=== PATIENT | female | born 1975 | race Caucasian/White ===

== ENCOUNTER 2016-12-02 20:17 | Emergency (ER) | payer OTHER ==
[~2016-12-02] VITALS: Ht 167.6 cm; Wt 118.0 kg
[~2016-12-02 20:17] MED LIST: ALBU8.5H2 INHALATION; AMLO5TAB2 PO; DULO30CA PO; FERR-74 PO; FLUC100T4 PO; HYDR-4003 PO; HYDROCODONE APAP PO; INSU100V7 SUBQ; LIP40 PO; LOPE1TAB13 PO; METF1000 PO; METO25TA6 PO; NOV100I SUBQ; ONDA8TAB10 PO; PANT40TA2 PO; TRAZ-118 PO
[2016-12-02 20:57] VITALS: BP 177/80; PULSE 92; RESP 18; O2SAT 96
--- NOTE | 2016-12-02 22:42 | ED.REPORT ---
HPI-Extremity Problem Upper Date of Service Dec 02, 2016 ED Provider: Jj Summers MD A right-handed 41 year old female with a history of diabetes, hypertension, abscess, MRSA, and neuropathy presents to the ED complaining of a dog bite. The pt was two fighting dogs yesterday when her hands were bitten. The right hand was only grazed but the left index finger sustained a puncture wound. Her left hand is now swollen and painful. The pt's tetanus vaccination is out of date. Nursing Notes Stated Complaint: L HAND SWOLLEN/DIABETIC Chief Complaint: Post Exposure Body Fluids Nursing Notes Reviewed: Yes Allergies: Coded Allergies: codeine (Verified Allergy, Severe, LOC, 10/20/15) hydromorphone (Verified Allergy, Severe, code blue, 10/20/15) 11/01/14-PATIENT SAYS SHE TAKES VICODIN AT HOME PER LESLI RN-CYM Scheduled Amlodipine (Amlodipine) 5 Mg Tablet 10 MG PO DAILY Atorvastatin (Lipitor) 40 Mg Tablet 40 MG PO DAILY Duloxetine (Cymbalta) 30 Mg Capsule.dr 30 MG PO DAILY Ferrous Sulfate (Feosol) 325 Mg Tablet 325 MG PO TIDWM Fluconazole (Fluconazole) 100 Mg Tablet 100 MG PO every tuesday Insulin Aspart (NovoLOG U100 Insulin Vial) 100 Unit/Ml Mdv 6-12 UNITS SUBQ TIDWM Insulin Glargine (Lantus U100 Insulin Vial) 100 Unit/Ml Unit 48 UNIT SUBQ HS Metformin (Glucophage) 1,000 Mg Tablet 1,000 MG PO BID Metoprolol Tartrate (Metoprolol Tartrate) 25 Mg Tablet 25 MG PO BID Ondansetron ODT (Ondansetron ODT) 8 Mg Tab.rapdis 8 MG PO QID Pantoprazole DR (Protonix) 40 Mg Tablet 40 MG PO BID Trazodone (Trazodone) 100 Mg Tablet 100 MG PO HS Scheduled PRN ([HYDROcodone-APAP 7.5-325]) 1 TABLET TABLET 1-2 TABLET PO Q4 PRN PRN For Pain Albuterol HFA (Proair HFA) 8.5 Gm Hfa.aer.ad 2 PUFFS INHALATION Q4H PRN PRN For Shortness of Breath Hydrocodone-Acetaminophen 5-325 mg (Hydrocodone-Acetaminophen 5-325 mg) 1 Each Tablet 1-2 TABLET PO Q4H PRN PRN For Pain Loperamide/Simethicone (Imodium Multi-Symptom Rel Cplt) 1 Each Tablet 2 EACH PO DAILY PRN PRN For Diarrhea or Loose Stool General Time Seen by MD: 22:41 Chief Complaint Hand Injury left Hx Obtained From: Patient Arrived By: Walk-in Onset Occurred: 1 day ago Symptom Duration: Since onset Recent Healthcare: No recent hospitalization, Recent doctor visit Similar Sx Previous: No Past Medical History Past Medical History MRSA Tarsal Tunnel Neuropathy Hx of pancreatitis abscess Hx of drug use, denies IV . clean since 1995 She denies any history of heart disease. Reports: Asthma, Diabetes mellitus, GERD, Hyperlipidemia, Hypertension Past Surgical History polyp removal Reports: Cholecystectomy Family History Reviewed, not relevant Smoking History Current Every Day Smoker, Former Smoker Social History Alcohol Use: "Social" Drug Use: Denies drug use (clean since 1995) Other Social History: Occupation lives with , no work or school at present Ambulatory Status Independent Review of Systems Constitutional: Denies: Fever Musculoskeletal: Reports: Extremity pain, Denies: Back pain, Neck pain Skin: Denies Rash Complete sys rev & neg: except as marked. Respiratory: Denies: Non-productive cough, Shortness of breath Cardiovascular: Denies: Chest pain GI: Denies: Abdominal pain Physical Exam Initial Vital Signs Vital Signs (First) Date Time Temp Pulse Resp B/P Pulse Ox O2 Delivery O2 Flow Rate FiO2 12/02/16 20:57 36.8 92 18 177/80 96 Room Air Initial VS: Reviewed General/Constitutional: Awake, Alert Neck: Atraumatic, Supple, Full range of motion Respiratory / Chest: Atraumatic, Breath sounds NL, Breath sounds = bilat, No respiratory distress Cardiovascular: Heart rate NL, Regular rhythm, Heart sounds NL Upper Extremity / MS: Atraumatic, Full range of motion Wrist / Hand: Full range of motion puncture wound to the radial aspect of the left index finger proximal to the IP crease tender in this area no proximal lymphangitic streaking no discharge Skin: Color NL, No rash, Warm, Dry Neurologic: Oriented X3, Speech NL, No motor deficits, No sensory deficits Head / Eyes: Atraumatic, Normocephalic, PERRL, EOMI ENT: Atraumatic, Airway patent, Mucous membranes moist Abdomen: Atraumatic Back: Atraumatic, Full range of motion Lower Extremity / Pelvis / MS: Atraumatic, Full range of motion Psychiatric: Affect NL, Mood NL Interpretation & Diagnostics Lab Results Interpretation Result Diagram: 12/02/16 2308 12/02/16 2308 Test 12/02/16 23:08 White Blood Count 11.4th/mm3 (3.8-10.1) Red Blood Count 4.11mil/mm3 (3.90-5.20) Hemoglobin 11.4g/dL (12.0-15.6) Hematocrit 33.4% (35.0-46.0) Mean Corpuscular Volume 81.3fL (81-100) Mean Corpuscular Hemoglobin 27.7pg (27.0-35.0) Mean Corpuscular Hemoglobin Concent 34.1% (32.0-37.0) Red Cell Distribution Width 12.9% (12.3-15.4) Platelet Count 259bil/L (150-400) Neutrophils (%) (Auto) 68.7% (40-74) Lymphocytes (%) (Auto) 23.8% (14-46) Monocytes (%) (Auto) 5.2% (4-12) Eosinophils (%) (Auto) 1.7% (0-5) Basophils (%) (Auto) 0.2% (0-3) Sodium Level 132mEq/L (134-144) Potassium Level 4.5mEq/L (3.5-5.2) Chloride Level 96mEq/L (97-108) Carbon Dioxide Level 24mmol/L (18-29) Blood Urea Nitrogen 32mg/dL (6-24) Creatinine 1.26mg/dL (0.57-1.00) Estimat Glomerular Filtration Rate 67mL/min (>59) Glucose Level 322mg/dL (60-99) Calcium Level 8.6mg/dL (8.5-10.1) Total Bilirubin 0.2mg/dL (0.0-1.2) Aspartate Amino Transf (AST/SGOT) 12U/L (0-50) Alanine Aminotransferase (ALT/SGPT) 17U/L (0-32) Alkaline Phosphatase 87U/L (25-150) Total Protein 6.2g/dL (6.4-8.4) Albumin 3.2g/dL (3.4-5.0) Hold Ramos Top Tube Received (Received) X-Ray Interpretation Xray Interpretation: soft tissue swelling without bony abnormality X-Ray Ordered: Hand left Interpretation / Wet Read by: Wet read ED physician Re-Eval/Medical Decision Source of Hx: Old records Counseled Regarding: Diagnosis, Lab results, Need for follow-up, When/why to return to ED Discharge & Departure Impression: Primary Impression: Dog bite of left hand Encounter type: initial encounter Qualified Code: S61.452A - Open bite of left hand, initial encounter Disposition: Home Discharge Condition All VS Reviewed: Yes Condition: Stable Additional Instructions: Emergency department evaluation today including the pelvic examination, labs and x-ray of hand. We gave intravenous antibiotics. We are going to try to manage this without hospitalizing you, but it is important that you watch this closely. Take augmentin as prescribed. Check your sugars and use your insulin. Elevate hand above the level of the heart. Call your primary care provider this am, tell them you were in the ED. I am hoping you can be re- checked in the office tomorrow. If not, return to the ED on tuesday, sooner if swelling/redness or pain are increasing. Referrals: Marsha Bright MD (PCP) [facility] Scribsara Attestation Portions of this note were transcribed by John De La O I, Dr. Summers personally performed the history, physical exam and medical decision-making; I reviewed and confirmed the accuracy of the information in the transcribed note. Signed by: Lana Polo, 12/02/16 and 23:55. copies to: [facility] Jj Summers MD Dec 02, 2016 22:41 JOHN DE LA O Dec 02, 2016 22:53
[2016-12-02] MEDS ORDERED: Ampicillin-Sulbactam Inj 3,000 MG in 0.9% Sodium Chloride 100 ML IV ONE (22:50)
[2016-12-02] MEDS ORDERED: TdaP Vaccine 0.5 mL Inj IM ONE (22:50)
[2016-12-02 23:51] LABS: BASOPHILS % (AUTO) 0.2 % (0-3); EOSINOPHILS % (AUTO) 1.7 % (0-5); MONOCYTES % (AUTO) 5.2 % (4-12); Mean Corpuscular Hemoglobin 27.7 pg (27.0-35.0); Mean Corpuscular Volume 81.3 fL (81-100); NEUTROPHILS % (AUTO) 68.7 % (40-74); Platelet Count 259 bil/L (150-400)
[2016-12-03 00:27] VITALS: BP 173/90; PULSE 92; RESP 20; O2SAT 98
[2016-12-03] MEDS ORDERED: _Amoxicillin-Clavulanate 875-125 mg Tablet PO SCH (08:30)
--- NOTE | 2016-12-03 09:08 | DRSVH ---
PROCEDURE: X-RAY LEFT HAND, MINIMUM THREE VIEWS ([id number]) INDICATIONS: dog bite, swollen hand TECHNIQUE: 3 views of the hand(s) acquired. COMPARISON: None. FINDINGS: Bones: No fractures or dislocations. Carpal bones are normally aligned. No suspicious bony lesions . Soft tissues: No suspicious soft tissue calcifications. Dorsal soft tissue swelling. IMPRESSION: No acute bony abnormality or soft tissue foreign bodies. Dictated by: Chapin Griffin [facility] Interpreted: Helen Bass MD on 12/03/2016 at 9:07 Transcribed by: SHAWNA on 12/03/2016 at 9:08 Approved by: Helen Bass MD, PhD on 12/03/2016 at 16:43
== END 2016-12-03 00:28 | disposition home or self-care (01) ==
LOC: SED 20:17
DX: S61.452A Open bite of left hand, initial encounter (principal); W54.0XXA Bitten by dog, initial encounter; Y93.89 Activity, other specified; Y92.9 Unspecified place or not applicable; Y99.8 Other external cause status; E11.9 Type 2 diabetes mellitus without complications; I10 Essential (primary) hypertension; E78.5 Hyperlipidemia, unspecified; J45.909 Unspecified asthma, uncomplicated; F17.200 Nicotine dependence, unspecified, uncomplicated; Z88.5 Allergy status to narcotic agent; Z79.4 Long term (current) use of insulin; Z79.84 Long term (current) use of oral hypoglycemic drugs; Z86.14 Personal history of Methicillin resistant Staphylococcus aureus infection; Z23 Encounter for immunization
CPT/HCPCS: 36415; 73130; 80053; 85025; 90471; 90715; 96365; 99284; J0295

== ENCOUNTER 2017-05-27 06:59 | Day surgery (SDC) | payer OTHER ==
--- NOTE | 2017-05-23 13:13 | PCM.ANEPRE ---
Anesthesia Pre-Op Review Reason for Review: Office Request - Patient nocompliat diabetic. Frequent BS in the 400s. Anesthesia Recommendations: Proceed with Procedure Additional Comments Morbidly Obese patient with frequent blood sugars in the high 400s'. Check blood sugar immediately upon arrival and report result to Anesthesiologist. Pending an acceptable blood sugar proceed and a DOS evaluation proceed. Bart Delcid MD May 23, 2017 13:13
[~2017-05-27] VITALS: Ht 167.6 cm; Wt 121.1 kg
[2017-05-27] VITALS (12 sets, daily range): BP systolic 118–162; BP diastolic 60–87; PULSE 69–81; RESP 11–18; O2SAT 92–100
[~2017-05-27 06:59] MED LIST changes: +ALBU18HF INH; -AMLO5TAB2 PO; +CETI5TAB28 PO; -FERR-74 PO; -FLUC100T4 PO; -HYDR-4003 PO; -HYDROCODONE APAP PO; +HYG25 PO; +INSU100C8 SUBQ; +LABE100T4 PO; -LIP40 PO; +LISI30TA5 PO; +LOPE-147 PO; -LOPE1TAB13 PO; -METO25TA6 PO; -NOV100I SUBQ; -ONDA8TAB10 PO; -PANT40TA2 PO; +RANI75TA21 PO; +TORS20TA3 PO; +TRIA10.8 NS
[2017-05-27] MEDS ORDERED: Insulin Human REGular 300 Unit/3 mL Inj ONE (07:00)
[2017-05-27] MEDS ORDERED: MeTOProlol 1 mg/mL 5 mL Inj ONE (07:00)
[2017-05-27] MEDS ORDERED: Ondansetron 2 mg/mL 2 mL Inj ONE (07:00)
[2017-05-27] MEDS ORDERED: fentaNYL-PF 50 mCg/mL 2 mL Inj ONE (07:00)
[2017-05-27] MEDS ORDERED: Propofol 10,000 mCg/mL 20 mL Inj ONE (07:00)
[2017-05-27] MEDS: Lactated Ringer's 1,000 ML IV SCH ×2 (07:02→09:23)
[2017-05-27] MEDS ORDERED: Levonorgestrel 20 mcg/24 hr IUD INTRAUTERI ONE ×2 (07:27→10:11)
[2017-05-27] MEDS ORDERED: Albuterol 2.5 mg/3 mL Inhalation Solution NEB PRN ×2 (07:35→09:45)
--- NOTE | 2017-05-27 09:07 | PCM.HPANE ---
Patient Data Date of Service: May 27, 2017 Surgeon Admitting Provider: Attending Provider:Crystal Owen MD Primary Care Physician:Aaron Cabrera DO Other Provider:Elizabeth Moore Anesthesia Reason for Visit Abnormal Uterine Bleeding Ht/WT & BMI Height (Feet): 5 Height (Inches): 6.00 Weight (Kilograms): 121.1 Body Mass Index 42.00 Allergies Coded Allergies: codeine (Verified Allergy, Severe, LOC, 10/20/15) hydromorphone (Verified Allergy, Severe, code blue, 10/20/15) 11/01/14-PATIENT SAYS SHE TAKES VICODIN AT HOME PER LESLI BROWN Past Anesthesia History Anesthesia History: Denies:: Abnormal Airway, Anesthesia Reactions, Difficult Intubation, Fam Anesthesia Reaction, Fam Malignant Hypertherm, Malignant Hyperthermia Diabetes History Hx Diabetes?: Yes (blood sugar at home at 4-247, 4 unit novolog) Type of Diabetes: Type II Glycemic Control: Insulin & Oral Medication Current Bedside Blood Glucose: 194 MRSA MRSA: Yes (2016- with foot surgery ) Medications Hypertension Medication: Yes Home Meds Incl Beta Oliver: Yes Date Beta Oliver Taken: May 26, 2017 Time Beta Oliver Taken: 07:00 Reported Medications Ranitidine (Zantac OTC)75 Mg Ljlyha06 Mg PO DAILY PRN For Dyspepsia or Heartburn #1 PKG Ref 0 05/20/17 Albuterol Sulfate (Ventolin HFA Inhaler)200 Puff/18 Gm Inhaler1 Puff INH Q4 PRN For Wheezing #1 INHALER Ref 0 05/20/17 Trazodone 100 Mg Rjxnkk298 Mg PO HS Ref 0 05/20/17 Torsemide 20 Mg Ktxxnz92 Mg PO BID PRN edema 30 Days Ref 0 05/20/17 Insulin Aspart (NovoLOG U100 Insulin Vial)100 U/Ml UUnknown Dose SUBQ DIRECTED PRN sliding scale/blood glucose #1 VIAL Ref 0 05/20/17 Triamcinolone Acetonide (Nasacort)10.8 Ml Spray10.8 Ml NS PRN For Congestion 05/20/17 Metformin (Glucophage)1,000 Mg Tablet1,000 Mg PO BID Ref 0 05/20/17 Lisinopril 30 Mg Qhrsqe64 Mg PO DAILY 30 Days Ref 0 05/20/17 Insulin Glargine (Lantus U100 Insulin Vial)100 Unit/Ml Vial35 Unit SUBQ BID #1 VIAL Ref 0 05/20/17 Labetalol 100 Mg Hlizgw266 Mg PO BID 05/20/17 Loperamide HCl (Imodium A-D)2 Mg Capsule2 Mg PO PRN For Diarrhea or Loose Stool 05/20/17 Duloxetine (Cymbalta)30 Mg Capsule.dr30 Mg PO DAILY Ref 0 05/20/17 Chlorthalidone 25 Mg Hjmere62 Mg PO DAILY #30 TABLET 05/20/17 Cetirizine 5 Mg Qtbzoc30 Mg PO HS Ref 0 05/20/17 Albuterol HFA (Proair HFA)8.5 Gm Hfa.aer.ad2 Puffs INHALATION Q4H PRN For Shortness of Breath #1 INHALER 05/20/17 Discontinued Reported Medications Trazodone 100 Mg Bchlhs723 Mg PO HS #30 10/20/15 Insulin Aspart (NovoLOG U100 Insulin Vial)100 Unit/Ml Mdv6-12 Units SUBQ TIDWM # 20 10/20/15 Albuterol HFA (Proair HFA)8.5 Gm Hfa.aer.ad2 Puffs INHALATION Q4H PRN For Shortness of Breath #1 INHALER 10/20/15 Atorvastatin (Lipitor)40 Mg Kactju08 Mg PO DAILY Ref 0 08/19/15 Metformin (Glucophage)1,000 Mg Tablet1,000 Mg PO BID Ref 0 08/19/15 Duloxetine (Cymbalta)30 Mg Capsule.dr30 Mg PO DAILY Ref 0 02/12/15 Loperamide/Simethicone (Imodium Multi-Symptom Rel Cplt)1 Each Tablet2 Each PO DAILY PRN For Diarrhea or Loose Stool 10/22/14 Fluconazole 100 Mg Ypxbqm711 Mg PO every tuesday Ref 0 09/29/[address] (Protonix)40 Mg Wtudfj02 Mg PO BID #60 TABLET Prov:Hector Bernard MD 03/29/16 Hydrocodone-Acetaminophen 5-325 mg 1 Each Tablet1-2 Tablet PO Q4H PRN For Pain # 16 TABLET Prov:Hector Bernard MD 03/29/16 Ondansetron ODT 8 Mg Tab.rapdis8 Mg PO QID #20 TABLET Prov:Hector Bernard MD 5/23/16 Metoprolol Tartrate 25 Mg Nkfaas91 Mg PO BID #60 TABLET Prov:Dom Mccallum MD 11/10/15 Ferrous Sulfate (Feosol)325 Mg Modxpp717 Mg PO TIDWM #90 TABLET Prov:Dom Mccallum MD 11/10/15 Amlodipine 5 Mg Vshene63 Mg PO DAILY #30 TABLET Prov:Dom Mccallum MD 11/10/15 Insulin Glargine (Lantus U100 Insulin Vial)100 Unit/Ml Unit48 Unit SUBQ HS #0 VIAL Prov:Dom Mccallum MD 11/10/15 [Hydrocodone/Acetaminophen] ([place] 7.5-325)1 TABLET TABLET No Conflict Check1-2 Tablet PO Q4 PRN For Pain #30 TABLET Prov:Dom Mccallum MD 11/10/15 History History of ENT Problems?: Yes HEENT History: Positive for:: Sinus Problem Denies:: Abnormal Airway Cataracts Difficult Intubation Dysphagia Glaucoma Hearing Problem Denture Type: Partial- Upper Teeth Condition: Missing Teeth Hx of Heart Problems?: Yes Cardiovascular History: Positive for:: Hypertension Denies:: AICD Abdominal Aortic Aneurism Atrial Fibrillation Cardiac Surgery Chest Pain Congestive Heart Failure Edema Heart Murmur Irregular Heartbeat Pacemaker Rheumatic Fever Thrombophlebitis Valvular Heart Disease Hx of Respiratory Problem?: Yes Respiratory History: Positive for:: Asthma Cough Use of Inhalers / NEBS Denies:: COPD Chest Surgery Dyspnea Emphysema Hemoptysis Oxygen Administration Pneumonia Pulmonary Embolism Tuberculosis Use of C-PAP Machine (sleep study recommended - not scheduled or done) Hx Neurologic Problems?: No Neurological History: Positive for:: Dizziness (Recent with new RX) Denies:: Alzheimer's Disease CVA Dementia Headaches Multiple Sclerosis Parkinson's Disease Seizures Hx of GI Problems?: Yes Hx of Problems?: No Genitourinary History: Denies:: HX of Hemodialysis Kidney Stones Urinary Tract Infection HX of Peritoneal Dialysis: No Female Hx: Denies:: Currently Endometriosis Pelvic Inflammatory Problems with Breasts? Skin History: Positive for:: History Skin Disorders? (prior hx I+D groin 2013) Denies:: Pressure Ulcers Hx Musculoskeletal Problems?: No Musculoskeletal History: Positive for:: Back Injury Denies:: Degenerative Joint Joint Replacement Musculoskeletal Trauma (foot surgeries- 2014 Dr Man ) Osteoarthritis Systemic Lupus Hx of Psycho/Social Problems?: No Psycho Social History: Positive for:: Anxiety Denies:: Bipolar Disorder Hx Depression Suicide Attempt Hx Surgeries?: Yes (GALLBLADDER, ABCESS with D&C) Hx Any Other Health Problems?: Yes Other History: Positive for:: Hospitalization (, 12/2013, 03/2010, 2000) Denies:: Cancer Endocrine Disease Thyroid Disease History Blood Transfusions: Positive for:: Accept Blood Products? 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 ) Smoking Status: Current Every Day Smoker Former Smoker Have You Smoked inLast 12 mo: Yes (one half pack day ) Stop/Bang S-Snoring: Do You Snore Loudly: Yes T-Tired: feel tired, fatigued: Yes O-Obsered: Observed not breath: No P-Blood Pressure: treated: Yes B- Body Mass Index > 35 kg/m2: Yes A- Age over 50: No N- Neck Large Circumference: Yes G- Gender Male: No SHAR Total Score: 5 SHAR Risk Assessment: High Risk, =/>3 Yes SHAR Category 4 OutPt Procedure: Yes Risk Assessment Category Category 1A: Patient has history of documented sleep apnea, and HAS NOT received any narcotic, sedative or anesthesia administration during this stay. Category 1B: Patient has history of documented sleep apnea, and HAS received any narcotic , sedative or anesthesia administration during this stay Category 2: Patient has SUSPECTED Obstructive Sleep Apnea, and HAS received any narcotic , sedative or anesthesia administration during this stay. Category 3: Patient has SUSPECTED Obstructive Sleep Apnea and HAS NOT received narcotic, sedative or anesthesia administration during this stay. Category 4: Outpatient in Procedural Areas with known sleep apnea or who screen positive for High Risk via the STOP/BANG questionnaire. Exam Exam Vital Signs Vital Signs Date Time Temp Pulse Resp B/P Pulse Ox O2 Delivery O2 Flow Rate FiO2 05/27/17 07:29 36.5 81 18 160/82 97 Room Air General Appearance: Alert, Oriented X3, Cooperative, No Acute Distress HEENT/AIRWAY: MP 2 Lungs: Clear to Auscultation, Diminished, Coarse Heart: Exam Unremarkable, Regular Rate/Rhythm, No Murmurs/Rubs/Gallops Meds/Labs/Diagnostics Admission Meds Current Medications Lactated Ringer's (Lr) 1,000 ml @ 120 mls/hr Q8H20M IV Last administered on t 07:02; Start 05/27/17 at 05:00; Stop 05/27/17 at 13:19 Bedside Blood Glucose: 194 Plan Impression Patient chart reviewed, patient interviewed and anesthestic plan with risks, benefits, and alternatives discussed, and informed consent obtained. NPO per Anesth. Guidelines: Yes ASA Physical Status: ASA3 Severe Disease Anesthetic Plan: GA Bene/Risks/Altern/Consents: Yes HP Complete Prior to Induction: Yes Caesar Fuller MD May 27, 2017 09:07
[2017-05-27] MEDS ORDERED: Lactated Ringer's 1,000 ML IV SCH (09:44)
[2017-05-27] MEDS ORDERED: Lactated Ringer's 500 ML IV PRN (09:44)
[2017-05-27] MEDS ORDERED: Labetalol 5 mg/mL 4 mL Inj IV PRN (09:45)
[2017-05-27] MEDS ORDERED: Ondansetron 2 mg/mL 2 mL Inj IVPUSH PRN ×2 (09:45→10:30)
[2017-05-27] MEDS ORDERED: hydrALAZINE 20 mg/mL Inj IVPUSH PRN (09:45)
[2017-05-27] MEDS ORDERED: EPHEDrine Sulfate 50 mg/mL Inj IVPUSH PRN (09:45)
[2017-05-27] MEDS ORDERED: Dexamethasone 4 mg/mL Inj IVPUSH PRN (09:45)
[2017-05-27] MEDS ORDERED: fentaNYL-PF 50 mCg/mL 2 mL Inj IVPUSH PRN (09:45)
[2017-05-27] MEDS ORDERED: Phenylephrine 10,000 mCg/mL Inj IVPUSH PRN (09:45)
[2017-05-27] MEDS ORDERED: Atropine 0.4 mg/mL Inj IVPUSH PRN (09:45)
[2017-05-27] MEDS ORDERED: MetoCLOpramide 5 mg/mL 2 mL Inj IVPUSH PRN ×2 (09:45→10:30)
[2017-05-27] MEDS ORDERED: Insulin Human REGular-Omnicell 100 Unit/mL ONE (10:22)
[2017-05-27] MEDS ORDERED: Ketorolac 15 mg/mL Inj IVPUSH PRN (10:30)
--- NOTE | 2017-05-27 10:36 | PCM.DIGYN ---
Surgical Discharge Instruction Dates of Hospitalization Date of Hospital Admission Providers Admitting Physician: Primary Care Physician: Aaron Cabrera DO Attending Physician: Crystal Owen MD Diet Discharge Diet: Heart Healthy, Diabetic Activity Discharge Activity-General: Balance rest and activity, Activity as pain allows , Activity as energy allows, No driving while taking narcotic Dressing and Incisional Care Hygiene: May shower, NO bathtub, hot tub or whirlpool Additional Instructions Discharge Instructions Nothing in the vagina for 2 weeks. Expect spotting for the next 1-2 weeks. You will be notified of the results from the tissue samples taken during the procedure today. Follow up in 2 weeks. Follow Up Plan Follow-up Provider (F9): Crystal Owen MD Follow-up appointment: Weeks (2) Call your provider for: Fever, Chills, Shortness of breath, Vomitting, Drainage at incision, Heavy vaginal bleeding, Wound redness, Increasing pain Katy Reddy DO May 27, 2017 10:36
--- NOTE | 2017-05-27 10:36 | PCM.SURGOP ---
Surgical Operative Report Date of Service: May 27, 2017 Pre Operative Diagnosis 1. Abnormal uterine bleeding 2. Left and right labial cysts 3. Uncontrolled diabetes Post Operative Diagnosis 1. Abnormal uterine bleeding 2. Left and right labial cysts 3. Uncontrolled diabetes Procedure: 1. Hysteroscopy D&C 2. Mirena IUD insertion 3. Incision and drainage of left and right labial cyst Surgeon and Customs And Border Protection Officer: Surgeon: Crystal Owen MD Assistants: None Indication for Procedure Jessica is a 41-year-old G0 with a history of abnormal uterine bleeding and complaints of painful labial cyst. She currently has one that is on her right labia near her clitoris and another one she reports arose this morning of the left labia that she would like removed or drains. She had a pelvic ultrasound done in December 2016 that showed a normal-sized uterus measuring 7.8 x 3.8 cm with a 6.2 mm endometrial echo. The ovaries were normal in appearance. Findings: Exam under anesthesia showing a erythematous vulva and perineum which is baseline for the patient. There was a right labial cyst that was about 1-2 cm that contained yellow pus like material. Similarly there was a left labial cyst that contained yellow puslike material was drained. Hysteroscopic findings showing a normal-appearing endometrial cavity. There was no endometrial polyps or fibroids appreciated (see intraoperative pictures). Procedure Details The patient was taken to the operating room where her general anesthesia was obtained without difficulty. She was placed in a lithotomy position in the [facility] and prepared and draped in the normal sterile fashion. A surgical timeout was performed. A hysteroscopy with dilation and curettage using the Myosure device was then performed. A bivalve speculum was inserted into the patient's vagina and the cervix was identified and grasped with single- tooth tenaculum. The cervix was then dilated using Hegar cervical dilators. The Myosure hysteroscope was then inserted and the above noted findings were appreciated. The Classic Myosure device was then inserted and the endometrial cavity was curetted. The Myosure scope and device were removed. A Mirena IUD was then inserted in the standard fashion. The uterus sounded to 9 cm. The left and right labial cyst were then incised with scalpel and drained. A portion of the left labial cyst capsule was sent to pathology. The beds of the cyst were cauterized with the Bovie cautery and to assure hemostasis. No sutures were used to close these incisions. They were both hemostatic. All lap instrument and needle counts were correct 2 at the end of procedure patient was taken to the recovery room awake and good condition. Complications There were no periprocedural complications identified. Surgical Specimen Removed: Yes Specimen sent to Pathology: Yes Surgical Specimen description: 1. small portion of left labial cyst wall Anesthetic Plan: GA Grafts, Implants: None Output, Estimated Blood Loss: 0 Blood Administration during calhoun: No Catheters: None Post Operative Plan Discharge home when awake and stable Crystal Owen MD May 27, 2017 10:36
--- NOTE | 2017-05-27 10:41 | PCM.ANEP1 ---
Post Anesthesia PACU Phase 1 Assessment Date of Service: May 27, 2017 Vital Signs 36.6 158/87 76 13 100% FM Anesthetic Administered: GA Level of Alertness: Sleeping, hard to arouse NORMAN's with Equal Strength: Yes Pain: No Nausea or Vomiting: No CV Function & Hydration Stable: Yes Airway Device: Oxygen Delivery: Simple Mask Lungs: Clear to Auscultation, Diminished, Coarse Summary Glu 123 PACU Phase 2 Assessment Complications: No Follow up Care: No Patient Instructions Provided: Yes Caesar Fuller MD May 27, 2017 10:41
--- NOTE | 2017-05-31 10:33 | PATH ---
SURGICAL PATHOLOGY Attending Physician:Crystal Owen, CASE STATUS: Signed Out PATIENT NAME: ELMER NUÑEZ PID: [id number] : 1975 DATE COLLECTED:05/27/2017 21:27 SPECIMEN: 1: Labium, Biopsy 2: Endometrium, Curettage CLINICAL HISTORY: ABNORMAL UTERINE BLEEDING, LABIAL CYST 1). LEFT LABIAL CYST CAPSULE 2). MYOSURE ENDOMETRIAL CURETTINGS FINAL DIAGNOSIS: 1. Left Labial Cyst Capsule: Acute and chronic inflammation with neuovascularization and prominent fibrosis. Elastic stain negative for elastic fiber proliferation. Negative for malignancy and significant atypia. 2. MyoSure Endometrial Curettings: Secretory endometrium with disordered maturation and focal changes of glandular breakdown. Negative for atypia and malignancy. ICD10: N93.8 GROSS DESCRIPTION: Received are two formalin-filled containers, both labeled with the patient' s name: 1. Received in formalin, labeled with the patient' s name and "left labia cyst capsule", is one irregular-shaped fragment of monson tissue measuring 0.4 x 0.3 x 0.2 cm. The fragment is totally submitted in cassette 1A. 2. Received in formalin, labeled with the patient' s name and "MyoSure endometrial curetting", are multiple fragments of monson tissue measuring 2.0 x 2.0 x 0.5 cm in aggregate. All fragments are totally submitted in cassette 2A. ([id number]) ICD-9 CODES: CPT CODES: 1: 41453, 26177 2: 91871 Electronically Signed Out Jj Lopez MD [facility] [address], [place] [address] Technical component performed at [facility], [facility] [address], [place], [address]
== END 2017-05-27 23:59 | disposition home or self-care (01) ==
LOC: SAS 06:59
PROVIDERS: ATTEND Obstetrics & Gynecology
DX: N93.8 Other specified abnormal uterine and vaginal bleeding (principal); N90.7 Vulvar cyst; Z30.014 Encounter for initial prescription of intrauterine contraceptive device; E11.65 Type 2 diabetes mellitus with hyperglycemia; I10 Essential (primary) hypertension; J45.909 Unspecified asthma, uncomplicated; F17.210 Nicotine dependence, cigarettes, uncomplicated; E66.01 Morbid (severe) obesity due to excess calories; Z68.41 Body mass index [BMI] 40.0-44.9, adult; Z79.51 Long term (current) use of inhaled steroids; Z79.84 Long term (current) use of oral hypoglycemic drugs; Z79.4 Long term (current) use of insulin
CPT/HCPCS: 56405; 58300; 58558; J1815; J1885; J2175; J2250; J2405; J3010; J7120; J7297; J7298; J7613

== ENCOUNTER 2017-06-08 18:52 | Emergency (ER) | payer OTHER ==
[~2017-06-08] VITALS: Ht 167.6 cm; Wt 107.7 kg
[2017-06-08 19:06] VITALS: BP 108/62; PULSE 75; RESP 20; O2SAT 94
--- NOTE | 2017-06-08 19:39 | ED.REPORT ---
HPI-Abd Pain F 40 and Over Date of Service Jun 08, 2017 ED Provider: Júnior Pedersen DO Pt is a 42 year old female with a history of DM, HTN, hyperlipidemia, MRSA, and abscesses who presents to the ED via EMS complaining of swelling, redness, and pain in her left groin region. She complains of associated upper abdominal cramping, left hand cramping, and occasionally leg cramping. Pt describes cramping as "like a Drake horse's" and rates it as 10. Her last menstruation was 05/07/17. Per pt, she had a IUD placed 5 days ago. She also reports a high blood sugar at 447 today. She notes she has a history of these abscesses which have required drainage in the past. Last night she noticed some drainage, dark brown in color coming from the groin area. Nursing Notes Stated Complaint: ABDOMINAL PAIN Chief Complaint: Female Abdominal Pain Nursing Notes Reviewed: Yes Allergies: Coded Allergies: codeine (Verified Allergy, Severe, LOC, 10/20/15) hydromorphone (Verified Allergy, Severe, code blue, 10/20/15) 11/01/14-PATIENT SAYS SHE TAKES VICODIN AT HOME PER LESLI RN-CYM Scheduled Cetirizine (Cetirizine) 5 Mg Tablet 10 MG PO HS Chlorthalidone (Chlorthalidone) 25 Mg Tablet 25 MG PO DAILY Duloxetine (Cymbalta) 30 Mg Capsule.dr 30 MG PO DAILY Insulin Glargine (Lantus U100 Insulin Vial) 100 Unit/Ml Vial 35 UNIT SUBQ BID Labetalol (Labetalol) 100 Mg Tablet 100 MG PO BID Lisinopril (Lisinopril) 30 Mg Tablet 30 MG PO DAILY Metformin (Glucophage) 1,000 Mg Tablet 1,000 MG PO BID Trazodone (Trazodone) 100 Mg Tablet 150 MG PO HS Scheduled PRN Albuterol HFA (Proair HFA) 8.5 Gm Hfa.aer.ad 2 PUFFS INHALATION Q4H PRN PRN For Shortness of Breath Albuterol Sulfate (Ventolin HFA Inhaler) 200 Puff/18 Gm Inhaler 1 PUFF INH Q4 PRN PRN For Wheezing Insulin Aspart (NovoLOG U100 Insulin Vial) 100 U/Ml U Unknown Dose SUBQ DIRECTED PRN PRN sliding scale/blood glucose Loperamide HCl (Imodium A-D) 2 Mg Capsule 2 MG PO PRN For Diarrhea or Loose Stool Ranitidine (Zantac OTC) 75 Mg Tablet 75 MG PO DAILY PRN PRN For Dyspepsia or Heartburn Torsemide (Torsemide) 20 Mg Tablet 20 MG PO BID PRN PRN edema Triamcinolone Acetonide (Nasacort) 10.8 Ml [place] 10.8 ML NS PRN For Congestion General Time Seen by MD: 19:13 Chief Complaint Abdominal pain Hx Obtained From: Patient Arrived By: Walk-in Sudden in Onset?: No Onset Occurred: More than a week ago... 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 Reports: Asthma, Diabetes mellitus, GERD, Hyperlipidemia, Hypertension Past Surgical History polyp removal Reports: Cholecystectomy Family History Reviewed, not relevant Smoking History Current Every Day Smoker, Former Smoker Social History Alcohol Use: "Social" Drug Use: Denies drug use Other Social History: Occupation lives with , no work or school at present Ambulatory Status Independent Review of Systems Respiratory: Denies: Non-productive cough GI: Reports: Abdominal pain (cramping) Female: Denies: Dysuria Musculoskeletal: Reports: Back pain (cramping), Extremity pain (cramping) Complete sys rev & neg: except as marked. Skin: Reports Swelling (Vaginal swelling) Physical Exam Vital Signs Vital Signs (First) Date Time Temp Pulse Resp B/P Pulse Ox O2 Delivery O2 Flow Rate FiO2 06/08/17 19:06 36.9 75 20 108/62 94 Room Air Initial VS: Reviewed Head / Eyes: Atraumatic, Normocephalic Neck: Supple, Full range of motion Extremities: Vascular intact, Neuro intact Skin: Warm, Dry, No cyanosis Neurologic: Alert, Oriented, Nonfocal Psychiatric: Mood/affect normal, Behavior normal General/Constitutional: Awake, Alert Respiratory / Chest: Atraumatic, Breath sounds NL, Breath sounds = bilat Cardiovascular: Heart rate NL, Regular rhythm, Heart sounds NL Abdomen: Atraumatic, Soft, Non-tender Back: Atraumatic, Full range of motion FEMALE : Erythematous and fluctuance area with 5x5 cm induration over left labia Interpretation & Diagnostics Lab Results Interpretation Result Diagram: 06/08/17195706/08/171957 Test 06/08/17 19:58 06/08/17 22:27 White Blood Count 12.5th/mm3 (3.8-10.1) Red Blood Count 4.19mil/mm3 (3.90-5.20) Hemoglobin 11.2g/dL (12.0-15.6) Hematocrit 33.2% (35.0-46.0) Mean Corpuscular Volume 79.2fL (81-100) Mean Corpuscular Hemoglobin 26.7pg (27.0-35.0) Mean Corpuscular Hemoglobin Concent 33.7% (32.0-37.0) Red Cell Distribution Width 13.5% (12.3-15.4) Platelet Count 244bil/L (150-400) Neutrophils (%) (Auto) 77.4% (40-74) Lymphocytes (%) (Auto) 15.3% (14-46) Monocytes (%) (Auto) 5.5% (4-12) Eosinophils (%) (Auto) 1.4% (0-5) Basophils (%) (Auto) 0.2% (0-3) Sodium Level 133mEq/L (134-144) Potassium Level 3.6mEq/L (3.5-5.2) Chloride Level 97mEq/L (97-108) Carbon Dioxide Level 22mmol/L (18-29) Blood Urea Nitrogen 32mg/dL (6-24) Creatinine 1.44mg/dL (0.57-1.00) Estimat Glomerular Filtration Rate 57mL/min (>59) Glucose Level 174mg/dL (60-99) Calcium Level 8.2mg/dL (8.5-10.1) Magnesium Level 1.5mg/dL (1.6-2.6) Total Bilirubin 0.2mg/dL (0.0-1.2) Aspartate Amino Transf (AST/SGOT) 9U/L (0-50) Alanine Aminotransferase (ALT/SGPT) 10U/L (0-32) Alkaline Phosphatase 80U/L (25-150) Total Protein 6.0g/dL (6.4-8.4) Albumin 2.8g/dL (3.4-5.0) Lipase 76U/L (13-60) Hold Ramos Top Tube Received (Received) Urine Color Yellow (YELLOW) Urine Appearance Slightly cloudy Urine pH 5.5 (5.0-8.0) Urine Specific [place] 1.020 (1.003-1.035) Urine Protein >300mg/dL (NEG,TRACE) Urine Glucose (UA) >1000mg/dL (NEGATIVE) Urine Ketones Negativemg/dL (NEGATIVE) Urine Occult Blood Large (NEGATIVE) Urine Nitrite Negative (NEGATIVE) Urine Bilirubin Negative (NEGATIVE) Urine Urobilinogen Normalmg/dL (NORMAL) Urine Leukocyte Esterase Negative (NEGATIVE) Urine RBC 3-10/hpf (0-2) Urine WBC 6-10/hpf (0-5) Urine Epithelial Cells Moderate/hpf (NONE-MOD) Urine Crystals None seen (NONE SEEN) Urine Bacteria Moderate/hpf (NONE-FEW) Urine Hyaline Casts 5/20/lpf (NONE) Urine Granular Casts Occasional (NONE SEEN) Urine Waxy Casts None seen (NONE SEEN) Urine Red Blood Cell Casts None seen (NONE SEEN) Urine White Blood Cell Casts None seen (NONE SEEN) Urine Mucus None seen (None Seen) Urine Trichomonas None seen (NONE SEEN) Urine Yeast None (NONE SEEN) Urinalysis Comment Urine Culture Reflexed Indicated Hold Urine Received (Received) Procedures ABSCESS DRAINAGE: Time: 22:53 Procedure performed by: ED Physician Consent/Setup/Site Prep: Consent from patient, Time-out performed, Hand hygiene observed, Stand sterile technique, Standard surgical scrub, Sterile drapes applied Location of Abscess: Left labia Local Anesthesia: Lidocaine w epi 1% Incised Abscess with Scalpel: #11 Pus Drained: Small Irrigation: Copious Post-Procedure/Complications: Packing placed, Drain placed, Culture obtained, Gram stain ordered, Dressing applied, No complications, Condition improved, Tolerated procedure well, Patient stable Re-Eval/Medical Decision Med Decision/Clinical Course 42-year-old female with history of recurrent groin abscesses presents with a left labial abscess and associated chills and aches. She does not meet criteria for sepsis although her white blood cell count is mildly elevated. She is noted to have mild acute kidney injury, however after IV fluids, pain medication, and incision and drainage of the abscess she is feeling much better. She has a follow-up appointment scheduled with [facility] [employer]OPER in 2 days. She has no symptoms of UTI, however her urine has some white blood cells and it was sent for culture. She is treated with Bactrim which will cover both MRSA abscess as well as a UTI if present. Her sugars have come down from her previously reported number in the 400s. Source of Hx: Old records Re-Evaluation/Progress : Time of Eval: 22:52 Re-Evaluation/Progress Note: Pt rechecked. Drained pt's abscess with pt's consent. Informed pt of plan for discharge. Pt understands and agrees with plan for discharge. F/U instructions and RTER warnings given. All questions addressed. All questions addressed. Counseled Regarding: Diagnosis, Lab results, Need for follow-up, When/why to return to ED Discharge & Departure Primary Impression: Labial abscess Additional Impressions: Leukocytosis Leukocytosis type: unspecified Qualified Code: D72.829 - Elevated white blood cell count, unspecified MADELEINE (acute kidney injury) Hyperglycemia Cellulitis Site of cellulitis: other site Qualified Code: L03.818 - Cellulitis of other sites Disposition: Home Discharge Condition All VS Reviewed: Yes Condition: Stable Patient Instructions: Acute Wound Care (GEN), Cellulitis (ED) Additional Instructions: Thank you for entrusting us with your care. Please take the antibiotics as directed, twice daily for 10 days. Use norco as needed for pain (#14 given). Drink plenty of fluids. Follow up with your equipment detailer as scheduled on Tuesday. Return to the ER for new or worsening symptoms. Wound packing can be removed in 2-3 days. It was a pleasure to meet you and I hope you feel better soon. Referrals: Aaron Cabrera DO (PCP) Milvia[place]sara Attestation Portions of this note were transcribed by Krysta David. I, Dr. Pedersen personally performed the history, physical exam and medical decision-making; I reviewed and confirmed the accuracy of the information in the transcribed note. Signed by: Lana Alvarez, 06/08/17. copies to: Aaron Cabrera Gary R DO Jun 08, 2017 19:39 Krysta Donald Jun 08, 2017 20:04
[2017-06-08 20:04] LABS: BASOPHILS % (AUTO) 0.2 % (0-3); EOSINOPHILS % (AUTO) 1.4 % (0-5); MONOCYTES % (AUTO) 5.5 % (4-12); Mean Corpuscular Hemoglobin 26.7 pg (27.0-35.0); Mean Corpuscular Volume 79.2 fL (81-100); NEUTROPHILS % (AUTO) 77.4 % (40-74); Platelet Count 244 bil/L (150-400)
[2017-06-08 20:31] LABS: Magnesium 1.5 mg/dL (1.6-2.6)
[2017-06-08 21:37] VITALS: BP 133/65; PULSE 71; RESP 18; O2SAT 95
[2017-06-08] MEDS ORDERED: Trimethoprim-Sulfa 160 mg-800 mg Tablet PO ONE (23:15)
[2017-06-08 23:30] LABS: APPEARANCE,URINE SLIGHTLY CLOUDY (CLEAR,HAZY); COLOR,URINE YELLOW (YELLOW); OCCULT BLOOD,URINE LARGE (NEGATIVE); PH,URINE 5.5 (5.0-8.0); UROBILINOGEN,URINE NORMAL (NORMAL)
[2017-06-08 23:33] VITALS: BP 159/71; PULSE 76; RESP 18; O2SAT 95
== END 2017-06-08 23:35 | disposition home or self-care (01) ==
LOC: EDBD 18:52 → EDUNIT# 18:52 → SED 18:52
DX: N76.4 Abscess of vulva (principal); D72.829 Elevated white blood cell count, unspecified; N17.9 Acute kidney failure, unspecified; R73.9 Hyperglycemia, unspecified; L02.214 Cutaneous abscess of groin; E11.40 Type 2 diabetes mellitus with diabetic neuropathy, unspecified; E78.5 Hyperlipidemia, unspecified; J45.909 Unspecified asthma, uncomplicated; K21.9 Gastro-esophageal reflux disease without esophagitis; I10 Essential (primary) hypertension; F17.200 Nicotine dependence, unspecified, uncomplicated; Z86.14 Personal history of Methicillin resistant Staphylococcus aureus infection; Z88.5 Allergy status to narcotic agent; Z79.84 Long term (current) use of oral hypoglycemic drugs; Z79.4 Long term (current) use of insulin
CPT/HCPCS: 36415; 56405; 80053; 81000; 81025; 83690; 83735; 85025; 87040; 87070; 87075; 87086; 87088; 87147; 87186; 87205; 96374; 99285; J2270

== ENCOUNTER 2017-07-20 21:30 | Inpatient (IN) | payer OTHER ==
[~2017-07-20] VITALS: Ht 167.6 cm; Wt 121.0 kg
[2017-07-20 21:38] VITALS: BP 182/110; PULSE 88; RESP 16; O2SAT 96
[2017-07-20 22:04] LABS: BASOPHILS % (AUTO) 0.1 % (0-3); EOSINOPHILS % (AUTO) 1.8 % (0-5); MONOCYTES % (AUTO) 4.8 % (4-12); Mean Corpuscular Hemoglobin 27.9 pg (27.0-35.0); Mean Corpuscular Volume 83.5 fL (81-100); NEUTROPHILS % (AUTO) 72.7 % (40-74); Platelet Count 254 bil/L (150-400)
[2017-07-20 22:31] LABS: Magnesium 2.1 mg/dL (1.6-2.6)
--- NOTE | 2017-07-20 22:37 | ED.REPORT ---
HPI-Abd Pain F 40 and Over Date of Service Jul 20, 2017 ED Provider: Don Wang DO A 42 year old female with a history of hypertension, diabetes, hyperlipidemia, MRSA infection, pancreatitis and recurrent abscesses presents to the ED complaining of abdominal pain. The pain is located in the epigastric area and radiates to the back. It began two to three weeks ago as a 2/10 discomfort and has worsened significantly in the last three days. The pt has been unable to take her medications today because of the pain. The pt had a labial abscess removal on 06/08/2017. The abscess site tested positive for MRSA but blood cultures were negative. She believes that her symptoms may be related to pancreatitis or an abscess. Nursing Notes Stated Complaint: UPPER ABDOMINAL PAIN Chief Complaint: Female Abdominal Pain Nursing Notes Reviewed: Yes Allergies: Coded Allergies: codeine (Verified Allergy, Severe, LOC, 07/20/17) hydromorphone (Verified Allergy, Severe, code blue, 07/20/17) 11/01/14-PATIENT SAYS SHE TAKES VICODIN AT HOME PER LESLI RN-CYM Scheduled Cetirizine (Cetirizine) 5 Mg Tablet 10 MG PO HS Chlorthalidone (Chlorthalidone) 25 Mg Tablet 25 MG PO DAILY Duloxetine (Cymbalta) 30 Mg Capsule.dr 30 MG PO DAILY Insulin Glargine (Lantus U100 Insulin Vial) 100 Unit/Ml Vial 35 UNIT SUBQ BID Labetalol (Labetalol) 100 Mg Tablet 100 MG PO BID Lisinopril (Lisinopril) 30 Mg Tablet 30 MG PO DAILY Metformin (Glucophage) 1,000 Mg Tablet 1,000 MG PO BID Trazodone (Trazodone) 100 Mg Tablet 150 MG PO HS Scheduled PRN Albuterol HFA (Proair HFA) 8.5 Gm Hfa.aer.ad 2 PUFFS INHALATION Q4H PRN PRN For Shortness of Breath Albuterol Sulfate (Ventolin HFA Inhaler) 200 Puff/18 Gm Inhaler 1 PUFF INH Q4 PRN PRN For Wheezing Insulin Aspart (NovoLOG U100 Insulin Vial) 100 U/Ml U Unknown Dose SUBQ DIRECTED PRN PRN sliding scale/blood glucose Loperamide HCl (Imodium A-D) 2 Mg Capsule 2 MG PO PRN For Diarrhea or Loose Stool Ranitidine (Zantac OTC) 75 Mg Tablet 75 MG PO DAILY PRN PRN For Dyspepsia or Heartburn Torsemide (Torsemide) 20 Mg Tablet 20 MG PO BID PRN PRN edema Triamcinolone Acetonide (Nasacort) 10.8 Ml [place] 10.8 ML NS PRN For Congestion General Time Seen by MD: 22:33 Chief Complaint Abdominal pain Hx Obtained From: Patient Arrived By: Walk-in Sudden in Onset?: No Onset Occurred: More than a week ago... 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 Skin: Denies Rash Physical Exam Vital Signs Vital Signs (First) Date Time Temp Pulse Resp B/P Pulse Ox O2 Delivery O2 Flow Rate FiO2 07/20/17 21:38 36.8 88 16 182/110 96 Room Air Initial VS: Reviewed General/Constitutional: Awake, Alert Respiratory / Chest: Atraumatic, Breath sounds NL, Breath sounds = bilat, No respiratory distress Cardiovascular: Heart rate NL, Regular rhythm, Heart sounds NL Abdomen: Atraumatic, Soft exquisite RUQ and epigastric tenderness Back: Atraumatic, Full range of motion Head / Eyes: Atraumatic, Normocephalic, PERRL, EOMI ENT: Atraumatic, Airway patent, Mucous membranes moist Skin: Atraumatic, Color NL, No rash, Warm, Dry Neurologic: Oriented X3, Speech NL, No motor deficits, No sensory deficits Neck: Atraumatic, Supple, Full range of motion Upper Extremity / MS: Atraumatic, Full range of motion Lower Extremity / Pelvis / MS: Atraumatic, Full range of motion Psychiatric: Affect NL, Mood NL Interpretation & Diagnostics Interpretation & Diagnostics: US Abdomen: CONCLUSION: Enlarged fatty liver. Mild extrahepatic biliary ductal dilation, which is nonspecific following cholecystectomy. If there are clinical and laboratory signs of biliary obstruction, an MRCP can be performed to further evaluate. Hypoechoic lesion superior to the pancreatic head, possibly a lymph node. Lab Results Interpretation Result Diagram: 07/20/17 21507/20/17 215 Test 07/20/17 21:53 07/20/17 21:59 07/20/17 23:07 Hold Urine Received (Received) White Blood Count 11.7th/mm3 (3.8-10.1) Red Blood Count 4.23mil/mm3 (3.90-5.20) Hemoglobin 11.8g/dL (12.0-15.6) Hematocrit 35.3% (35.0-46.0) Mean Corpuscular Volume 83.5fL (81-100) Mean Corpuscular Hemoglobin 27.9pg (27.0-35.0) Mean Corpuscular Hemoglobin Concent 33.4% (32.0-37.0) Red Cell Distribution Width 13.7% (12.3-15.4) Platelet Count 254bil/L (150-400) Neutrophils (%) (Auto) 72.7% (40-74) Lymphocytes (%) (Auto) 20.3% (14-46) Monocytes (%) (Auto) 4.8% (4-12) Eosinophils (%) (Auto) 1.8% (0-5) Basophils (%) (Auto) 0.1% (0-3) Sodium Level 133mEq/L (134-144) Potassium Level 4.4mEq/L (3.5-5.2) Chloride Level 94mEq/L (97-108) Carbon Dioxide Level 25mmol/L (18-29) Blood Urea Nitrogen 44mg/dL (6-24) Creatinine 1.92mg/dL (0.57-1.00) Estimat Glomerular Filtration Rate 41mL/min (>59) Glucose Level 339mg/dL (60-99) Calcium Level 9.2mg/dL (8.5-10.1) Magnesium Level 2.1mg/dL (1.6-2.6) Total Bilirubin 0.2mg/dL (0.0-1.2) Aspartate Amino Transf (AST/SGOT) 13U/L (0-50) Alanine Aminotransferase (ALT/SGPT) 13U/L (0-32) Alkaline Phosphatase 87U/L (25-150) Troponin T 0.010ug/L (0.0-0.011) Total Protein 7.1g/dL (6.4-8.4) Albumin 3.2g/dL (3.4-5.0) Lipase 349U/L (13-60) Hold Ramos Top Tube Received (Received) Urine Color Yellow (YELLOW) Urine Appearance Clear (CLEAR,HAZY) Urine pH 7.0 (5.0-8.0) Urine Specific [place] 1.015 (1.003-1.035) Urine Protein >300mg/dL (NEG,TRACE) Urine Glucose (UA) >1000mg/dL (NEGATIVE) Urine Ketones Negativemg/dL (NEGATIVE) Urine Occult Blood Moderate (NEGATIVE) Urine Nitrite Negative (NEGATIVE) Urine Bilirubin Negative (NEGATIVE) Urine Urobilinogen Normalmg/dL (NORMAL) Urine Leukocyte Esterase Negative (NEGATIVE) Urine RBC 11-50/hpf (0-2) Urine WBC 6-10/hpf (0-5) Urine Epithelial Cells Few/hpf (NONE-MOD) Urine Crystals None seen (NONE SEEN) Urine Bacteria Moderate/hpf (NONE-FEW) Urine Hyaline Casts None/lpf (NONE) Urine Granular Casts None seen (NONE SEEN) Urine Waxy Casts None seen (NONE SEEN) Urine Red Blood Cell Casts None seen (NONE SEEN) Urine White Blood Cell Casts None seen (NONE SEEN) Urine Mucus Present (None Seen) Urine Trichomonas None seen (NONE SEEN) Urine Yeast None (NONE SEEN) Urinalysis Comment None Urine Culture Reflexed Indicated ECG Interpretation ECG Interpretation: normal sinus rhythm with a rate of 81 ST elevation, probable normal early repolarization pattern Time: 23:23 Interpreted by: ED physician Pulse Oximetry Interpretation Pulse Oximetry Interpretation: 96% on room air Pulse Oximetry: Pulse Ox normal Re-Eval/Medical Decision Med Decision/Clinical Course Acute pancreatitis with renal insufficiency and hyperglycemia. Ultrasound of her abdomen was otherwise reassuring. Possible lymph node at the head of the pancreas. We will admit for pain control and further evaluation. She does have a urinary tract infection and so therefore she is given 2 g of Rocephin. Culture of her urine is pending. Source of Hx: Old records Re-Evaluation/Progress : Time of Eval: 23:28 Patient Status: Condition improved Re-Evaluation/Progress Note: Pt rechecked, who is comfortable. Additional history is obtained. The diagnosis and plan for admission are discussed. The pt understands and agrees with the plan. All questions are addressed at this time. Consultation : Referral / Consult Name: Reinier Barboza MD Consulted With: Hospitalist Call Returned at: 00:00 Electrician Apprentice: Agrees with eval, Agrees with plan, Accepts admit Note: Spoke with Dr. Barboza, hospitalist, regarding pt's case. Dr. Barboza agrees with the evaluation and agrees to admit the pt. Counseled Regarding: Diagnosis, Lab results, Need for admission Discharge & Departure Primary Impression: Pancreatitis, acute Pancreatitis type: unspecified pancreatitis type Acute pancreatitis complication: unspecified Qualified Code: K85.90 - Acute pancreatitis without necrosis or infection, unspecified Additional Impressions: Renal insufficiency UTI (urinary tract infection) Urinary tract infection type: site unspecified Hematuria presence: without hematuria Qualified Code: N39.0 - Urinary tract infection, site not specified Disposition: ADMITTED TO HOSPITAL Discharge Condition All VS Reviewed: Yes Condition: Stable Referrals: Gudelia Bryant DO (PCP) Scribe Attestation Portions of this note were transcribed by John De La O. I, Dr. Wang personally performed the history, physical exam and medical decision-making; I reviewed and confirmed the accuracy of the information in the transcribed note. copies to: Gudelia Bryant Todd P DO Jul 20, 2017 22:37 JOHN DE LA O Jul 20, 2017 23:03
[2017-07-20 23:39] LABS: APPEARANCE,URINE CLEAR (CLEAR,HAZY); COLOR,URINE YELLOW (YELLOW); OCCULT BLOOD,URINE MODERATE (NEGATIVE); UROBILINOGEN,URINE NORMAL (NORMAL)
[2017-07-20] MEDS ORDERED: 0.9% Sodium Chloride 1,000 ML IV ONE (23:40)
[2017-07-20] MEDS ORDERED: cefTRIAXone Inj 2,000 MG in Dextrose 5% Minibag Plus 50 ML IV ONE (23:45)
[2017-07-21 00:17] VITALS: BP 174/86; PULSE 92; RESP 17; O2SAT 98
[2017-07-21] MEDS ORDERED: Ondansetron 2 mg/mL 2 mL Inj IVPUSH PRN (00:30)
[2017-07-21] MEDS ORDERED: Alum-Mag Hydrox-Simeth 30 mL Suspension PO PRN (00:30)
[2017-07-21] MEDS ORDERED: Polyethylene Glycol (PEG) 17 Gm Powder PO PRN (00:30)
--- NOTE | 2017-07-21 00:38 | PCM.HPMED ---
Subjective Date of Service Jul 21, 2017 Primary Provider: Admitting Physician: Primary Care Physician: Gudelia Bryant DO Attending Physician: Admit Status: From the Emergency Department Chief Complaint: Abdominal pain History of Present Illness: Patient is a 42-year-old female that presents to the emergency department with upper abdominal pain that radiates to the back. She has a history of pancreatitis 2, diabetes, hyperlipidemia, MRSA infection, and recurrent abscesses Patient states that her abdominal pain started 2 weeks ago and worsened this last July 17. She states that the pain is better in the morning and worse after eating. The pain is located in the epigastric region and radiates directly to the back. She says that this is similar to the pain she experienced previously with pancreatitis. The patient reports typically being compliant with her medications but states that she was unable to take them this morning secondary to nausea. Patient denies vomiting, diaphoresis, constipation , dysuria, hematochezia, chest pain. Patient admits to polyuria secondary to diuretic, chronic diarrhea with current stools being consistency of jelly. Review of Systems: Complete ROS was performed and pertinent positives and negatives included in the history of present illness. All other findings were negative. Allergies Coded Allergies: codeine (Verified Allergy, Severe, LOC, 07/20/17) hydromorphone (Verified Allergy, Severe, code blue, 07/20/17) 11/01/14-PATIENT SAYS SHE TAKES VICODIN AT HOME PER LESLI RN-CYM Home Medications Cetirizine (Cetirizine) 5 Mg Tablet 10 MG PO HS Chlorthalidone (Chlorthalidone) 25 Mg Tablet 25 MG PO DAILY Duloxetine (Cymbalta) 30 Mg Capsule.dr 30 MG PO DAILY Insulin Glargine (Lantus U100 Insulin Vial) 100 Unit/Ml Vial 35 UNIT SUBQ BID -80U every AM Labetalol (Labetalol) 100 Mg Tablet 100 MG PO BID Lisinopril (Lisinopril) 30 Mg Tablet 30 MG PO DAILY Metformin (Glucophage) 1,000 Mg Tablet 1,000 MG PO BID Trazodone (Trazodone) 100 Mg Tablet 150 MG PO HS Albuterol HFA (Proair HFA) 8.5 Gm Hfa.aer.ad 2 PUFFS INHALATION Q4H PRN PRN For Shortness of Breath Albuterol Sulfate (Ventolin HFA Inhaler) 200 Puff/18 Gm Inhaler 1 PUFF INH Q4 PRN PRN For Wheezing Insulin Aspart (NovoLOG U100 Insulin Vial) 100 U/Ml U Unknown Dose SUBQ DIRECTED PRN PRN sliding scale/blood glucose Loperamide HCl (Imodium A-D) 2 Mg Capsule 2 MG PO PRN For Diarrhea or Loose Stool Ranitidine (Zantac OTC) 75 Mg Tablet 75 MG PO DAILY PRN PRN For Dyspepsia or Heartburn Torsemide (Torsemide) 20 Mg Tablet 20 MG PO BID PRN PRN edema Triamcinolone Acetonide (Nasacort) 10.8 Ml [place] 10.8 ML NS PRN For Congestion PMH 1. MRSA 2. Tarsal tunnel 3. Neuropathy 4. History of pancreatitis 5. 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 Diabetes mellitus 7. GERD 8. Hyperlipidemia 9. Hypertension 10. Asthma Surgical History 1. Cholecystectomy 2. Left foot, third toe surgically removed and half of second toe surgically removed 3. I/D abscess leg, groin, underbreast Family History 1. Father had pancreatis 2. Father had diabetes 3. Father had renal failure on dialysis 4. Father had congestive heart failure Social History Hx Alcohol Use: No (rare alcohol use, last time one year ago, no hx of heavy alcohol use) Hx Substance Use: No (meth use - none for 21 years ) Hx Tobacco Use: Yes Smoking Status: Current Every Day Smoker (Several attempts at quitting) Living Arrangement: with Family Exam Vital Signs Vital Sign - Last Date Time Temp Pulse Resp B/P Pulse Ox O2 Delivery O2 Flow Rate FiO2 07/21/17 00:17 92 17 174/86 98 Room Air 07/20/17 21:38 36.8 Exam General: Nondistressed, well-developed morbidly obese female HEENT: NC/AT, PERRLA, EOM intact. Nontender sinuses, no nasal discharge. Fair dentation, no erythema, nor exudate present in oropharynx. No thyromegaly appreciated. CV: Regular rate and rhythm, no murmurs, gallops, or rubs appreciated RESP: Clear to auscultation bilaterally, no wheezes or rhonchi appreciated ABD: Bowel sounds normal, nondistended, tender to palpation over epigastric region. No rebound tenderness, Larson's point negative EXT: No joint swelling, no edema appreciated LYMPH: No cervical or axillary adenopathy appreciated NEURO: Symmetric face, cranial nerves grossly intact, strength intact bilaterally upper and lower extremities, decreased sensation to light touch left lower extremity below the knee, decreased sensation to light touch right lower extremity below the calf. PSYCH: Oriented 4. Linear and appropriate conversation. Skin: No rashes or ecchymosis appreciated Lab and Diagnostics Result Diagram: 07/20/17215807/20/172158 Assessment & Plan Patient is a 42-year-old female that presents with upper abdominal pain and a history of pancreatitis, diabetes, MRSA, neuropathy 1. Acute pancreatitis, presents upon admission and ongoing -Lipase at 349, epigastric pain radiating to the back, and history of pancreatitis suggests likely origin of pain -Cholecystectomy therefore, not gallbladder. -Abdominal ultrasound indicative of fatty liver, likely cause of pancreatitis -Normal saline -Strict I&O measurement -Pain management with morphine as patient is allergic to hydromorphone -Nothing by mouth 2. Acute kidney injury, present on admission and ongoing -Elevated BUN of 44, elevated creatinine at 1.92 -Fluids as above -Avoid nephrotoxic medications 3. Diabetes, insulin-dependent, present on admission and ongoing -Patient on Lantus, NovoLog, and metformin at home. We will hold metformin and continue the rest of medications 4. Hypertension, present on admission and ongoing - Continue home Labatolol for BP management 5. GERD, present on admission ongoing -Protonix Patient has been admitted into inpatient, she is expected to spend greater than two midnights in the hospital Pain Evaluation: Adequate Pain Control GI Prophylaxis: H2 ekaterina VTE Prophylaxis: Sub-Q Heparin (Unfractionated) Resuscitation Status: CPR: Attempt Resuscitation Attending Statement The patient was seen and examined together with Dr. Allen on 07/21 and I agree with the history, exam and plan as outlined in the note above. Mervat Allen DO Jul 21, 2017 00:38 Reinier Barboza MD Jul 21, 2017 05:25
[2017-07-21] MEDS: 0.9% Sodium Chloride 1,000 ML IV SCH ×3 (01:20→21:11)
[2017-07-21 01:30] VITALS: BP 179/95; PULSE 89; RESP 18; O2SAT 96
[2017-07-21 01:31] VITALS: BP 157/64; PULSE 95; RESP 19; O2SAT 96
[2017-07-21] MEDS ORDERED: INSU100I13 SUBQ (01:54)
[2017-07-21] MEDS ORDERED: TRAZ150T72 PO (01:54)
[2017-07-21] MEDS ORDERED: FLUC150T3 PO (01:55)
--- NOTE | 2017-07-21 01:57 | NUR ---
Admit Note Pt. arrived on floor at 0125. A&OX3. Pt. reports abdominal pain. Peripheral IV intact and patent. Will continue to monitor.
[2017-07-21] MEDS ORDERED: Albuterol HFA 60 Puff 8 Gm Inhaler INHALATION PRN (02:05)
[2017-07-21] MEDS ORDERED: Albuterol 2.5 mg/3 mL Inhalation Solution NEB PRN (02:13)
[2017-07-21] MEDS ORDERED: Glucose 40% Oral Gel 15 Gm Tube PO PRN (02:15)
[2017-07-21] MEDS ORDERED: Dextrose 10% 250 ML IV PRN (02:20)
[2017-07-21 05:55] VITALS: BP 159/78; PULSE 86; RESP 18; O2SAT 95
[2017-07-21] MEDS ORDERED: Insulin ASPART 70/30 100 Unit/mL Syringe SUBQ SCH (08:00)
[2017-07-21] MEDS: Insulin GLARgine 100 Unit/mL Syringe SUBQ SCH (09:25)
[2017-07-21] MEDS: Insulin LISPRO 300 Unit/3 mL Inj SUBQ SCH ×5 (09:26→21:17)
[2017-07-21] MEDS: Pantoprazole 40 mg ER24 Tablet PO SCH (09:58)
[2017-07-21] MEDS: DULoxetine 30 mg DR Capsule PO SCH (09:58)
[2017-07-21] MEDS: Heparin 5,000 Unit/mL Inj SUBQ SCH ×2 (09:58→21:15)
--- NOTE | 2017-07-21 11:13 | DRSVH ---
PROCEDURE: US ABDOMEN, LIMITED ([id number]) INDICATIONS: ruq pain TECHNIQUE: Real-time focused scanning was performed of the abdomen, with image documentation. COMPARISON: [facility] Ultrasound, US, US PELVIC+TRANSVAG, 12/14/2016, 17:00. FINDINGS: Liver is diffusely increased in echogenicity. No focal hepatic abnormalities identified. Normal hepatic size. Not requested. Post cholecystectomy. No biliary dilatation. Small lymph node s seen adjacent to the pancreatic head measuring roughly 1.0 cm in maximal short axis. Right kidney is grossly normal. No free fluid seen. IMPRESSION: 1. Increased hepatic echogenicity noted likely related to fatty infiltration of the liver but other s ources of hepatocellular disease cannot be excluded. Recommend clinical correlation. No biliary dil atation present with the common bile duct measuring roughly 6 mm. 2. Presumed prominent lymph node adjacent to the pancreatic head which can be further assessed by abd ominal CT scan which is scheduled for 07/21/2017. Dictated by: Chapin Griffin A Interpreted: Helen Bass MD on 07/21/2017 at 9:01 Approved by: Helen Bass MD, PhD on 07/21/2017 at 11:10
[2017-07-21 11:26] VITALS: BP 144/84; PULSE 72; RESP 18; O2SAT 96
--- NOTE | 2017-07-21 15:52 | DRSVH ---
PROCEDURE: CT ABDOMEN AND PELVIS WITH CONTRAST ([id number]) INDICATIONS: upper abdominal pain TECHNIQUE: After the administration of oral and intravenous contrast, 5 mm thick sections acquired from the diap hragms to the symphysis. 5 mm thick coronal and sagittal reformats were performed. For radiation do se reduction, the following was used: automated exposure control, adjustment of mA and/or kV accordi ng to patient size. COMPARISON: [facility], CT, ABD/PELVIS W/CON (PN), 03/11/2015, 16:10. FINDINGS: Image quality: Excellent. ABDOMEN: Lung bases: Lung bases are clear. Heart size is normal. Solid organs: Liver and spleen are normal in size and enhancement. Gallbladder surgically absent. Biliary system is non-dilated. Pancreas enhances normally. No adrenal nodules. Kidneys are normal in size and enhancement, without hydronephrosis. Peritoneum and bowel: Stomach, small bowel, and colon loops are normal in caliber and wall thickness . No free fluid or air. The appendix appears normal Nodes and vessels: There are shotty retroperitoneal lymph nodes without definite pathologic enlargeme nt. Aorta and inferior vena cava are normal in caliber. Miscellaneous: Containing umbilical hernia measuring 2 cm PELVIS: Genitourinary: Bladder wall thickness is normal. Incidentally noted IUD. Presumed right adnexal cys t/dominant follicle. Miscellaneous: No inguinal hernias or adenopathy. Bones: No suspicious bony lesions. No vertebral body compression fractures. IMPRESSION: No visualized, specific etiology for clinically reported upper abdominal pain. Status post cholecystectomy. 2 cm fat containing umbilical hernia. Normal appendix. Dictated by: Burke Lopez M.D. on 07/21/2017 at 14:46 Approved by: Burke Lopez M.D. on 07/21/2017 at 14:51
--- NOTE | 2017-07-21 16:27 | NUR ---
Social Work: Initial Assessment/Multidisciplinary Rounds D: EMR reviewed. Please see Initial Assessment linked to this note for more information. Pt is a 42 year old female admitted [place] for acute pancreatitis, acute renal insufficiency per H&P. Pt's insurance is [employer]. PCP is Gudelia Bryant DO. Pt discussed in multidisciplinary rounds, Pt is likely to discharge home, no needs. Pt is not medically stable today. No concerns raised about pt's capacity for self-care. SW met with pt at bedside to conduct initial assessment. Pt was alert and oriented x3. SW explained role and wrote phone number on white board. SW provided [facility] Discharge Planning Checklist and encouraged pt to contact SW for any discharge planning questions. Pt's designated contact is Yony Khan, Pt lives at home with her family ( and adult daughter) in [place]. Pt is independent with all ADLs at baseline. Pt uses no DME at baseline. Pt drives. Pt has no SNF history. Pt has history of [facility] for wound care from November to May of 2017. Pt is not currently open with any services. Pt has no LTC or VA benefits. Pt has no DPOA on file, SW requested copy of pt's DPOA. Pt agreeable. Pt is likely to d/c home with to transport via POV. SW will continue to follow. A: Pt who is independent at baseline and has the capacity for self-care. P: Pt anticipated to discharge home with to transport via POV. No SW needs identified, no MD orders received at this time. SW will continue to follow for needs until time of discharge. LEIA Castillo Addendum: 07/21/17 at 1630 by JULIETA WOODWARD Amended: Links added.
--- NOTE | 2017-07-21 19:13 | NUR ---
Shift Note: Patient had CT scan this afternoon. Was moved to clear liquid diet upon return, she tolerated well. IV fluids continue. Pain well controlled with IV medication. Rested and "caught up on sleep" most of the day.
[2017-07-21 19:42] VITALS: BP 143/88; PULSE 74; RESP 16; O2SAT 96
[2017-07-22 00:14] VITALS: BP 151/71; PULSE 72; RESP 18; O2SAT 97
[2017-07-22 04:30] VITALS: BP 144/71; PULSE 69; RESP 16; O2SAT 95
--- NOTE | 2017-07-22 04:42 | NUR ---
Pain Pt. reports abdominal pain. IV morphine 4mg given and seems to be effective. Pt. tolerating clear liquid diet well with no nausea noted. Will continue to monitor.
[2017-07-22 06:05] LABS: BASOPHILS % (AUTO) 0.1 % (0-3); EOSINOPHILS % (AUTO) 1.8 % (0-5); MONOCYTES % (AUTO) 5.6 % (4-12); Mean Corpuscular Hemoglobin 27.4 pg (27.0-35.0); Mean Corpuscular Volume 84.4 fL (81-100); NEUTROPHILS % (AUTO) 62.1 % (40-74); Platelet Count 204 bil/L (150-400)
[2017-07-22] MEDS: 0.9% Sodium Chloride 1,000 ML IV SCH ×2 (07:05→16:29)
[2017-07-22 07:45] VITALS: BP 149/85; PULSE 70; RESP 16; O2SAT 96
[2017-07-22] MEDS: Insulin LISPRO 300 Unit/3 mL Inj SUBQ SCH ×4 (07:50→23:20)
[2017-07-22] MEDS: Pantoprazole 40 mg ER24 Tablet PO SCH (08:00)
[2017-07-22] MEDS: DULoxetine 30 mg DR Capsule PO SCH (08:00)
[2017-07-22] MEDS: Heparin 5,000 Unit/mL Inj SUBQ SCH ×2 (08:00→20:49)
[2017-07-22] MEDS: Insulin GLARgine 100 Unit/mL Syringe SUBQ SCH ×2 (08:30→10:00)
[2017-07-22 13:20] VITALS: BP 144/63; PULSE 80; RESP 20; O2SAT 97
--- NOTE | 2017-07-22 16:10 | NUR ---
Diet: VSS, not on tele, RA O2 sats WNL. Diet advanced from clear liquids to diabetic, pt tolerating advanced diet with no c/o nausea or pain. Voiding independently, multiple loose BMs this shift. Up ad braeden in room, no gait instability noted. Care ongoing.
--- NOTE | 2017-07-22 16:17 | PCM.PNMED ---
Subjective Date of Service Jul 22, 2017 Subjective She notes improvement in her abdominal pain and we will go ahead and progress diet as tolerated Exam Vital Signs Vital Sign - Last Date Time Temp Pulse Resp B/P Pulse Ox O2 Delivery O2 Flow Rate FiO2 07/22/17 13:20 36.7 80 20 144/63 97 Room Air Intake and Output 07/21/17 07/21/17 07/22/17 Cumulative From/Thru 15:00 23:00 07:00 07/20/17 21:38 - 07/22/17 05:46 Intake Total 960 ml 2031 ml 4437 ml Output Total 650 ml 1350 ml Balance 960 ml 1381 ml 3087 ml Intake Oral 960 ml 960 ml 1920 ml IV Total 1071 ml 2517 ml Output Urine Total 650 ml 1350 ml # Voids 1 # Bowel Movements 0 0 Exam Constitutional: Middle-aged female in no acute distress Head: Normocephalic atraumatic Chest: Clear to auscultation Cor: Regular rate and rhythm S1-S2 without murmur Abdomen: Soft there is mild tenderness in the epigastrium no rebound or guarding bowel sounds are present Extremities: No pedal edema Neuro: Alert and oriented 3, motor strength is intact bilaterally Lab and Diagnostics Laboratory Tests 72 Hours Test 07/20/17 21:53 07/20/17 21:59 07/20/17 23:07 07/21/17 09:40 Hold Urine Received (Received) White Blood Count 11.7th/mm3 (3.8-10.1) Red Blood Count 4.23mil/mm3 (3.90-5.20) Hemoglobin 11.8g/dL (12.0-15.6) Hematocrit 35.3% (35.0-46.0) Mean Corpuscular Volume 83.5fL (81-100) Mean Corpuscular Hemoglobin 27.9pg (27.0-35.0) Mean Corpuscular Hemoglobin Concent 33.4% (32.0-37.0) Red Cell Distribution Width 13.7% (12.3-15.4) Platelet Count 254bil/L (150-400) Neutrophils (%) (Auto) 72.7% (40-74) Lymphocytes (%) (Auto) 20.3% (14-46) Monocytes (%) (Auto) 4.8% (4-12) Eosinophils (%) (Auto) 1.8% (0-5) Basophils (%) (Auto) 0.1% (0-3) Sodium Level 133mEq/L (134-144) 139mEq/L (134-144) Potassium Level 4.4mEq/L (3.5-5.2) 5.0mEq/L (3.5-5.2) Chloride Level 94mEq/L (97-108) 106mEq/L (97-108) Carbon Dioxide Level 25mmol/L (18-29) 23mmol/L (18-29) Blood Urea Nitrogen 44mg/dL (6-24) 36mg/dL (6-24) Creatinine 1.92mg/dL (0.57-1.00) 1.15mg/dL (0.57-1.00) Estimat Glomerular Filtration Rate 41mL/min (>59) 74mL/min (>59) Glucose Level 339mg/dL (60-99) 234mg/dL (60-99) Calcium Level 9.2mg/dL (8.5-10.1) 8.3mg/dL (8.5-10.1) Magnesium Level 2.1mg/dL (1.6-2.6) Total Bilirubin 0.2mg/dL (0.0-1.2) Aspartate Amino Transf (AST/SGOT) 13U/L (0-50) Alanine Aminotransferase (ALT/SGPT) 13U/L (0-32) Alkaline Phosphatase 87U/L (25-150) Troponin T 0.010ug/L (0.0-0.011) Total Protein 7.1g/dL (6.4-8.4) Albumin 3.2g/dL (3.4-5.0) Lipase 349U/L (13-60) Hold Ramos Top Tube Received (Received) Urine Color Yellow (YELLOW) Urine Appearance Clear (CLEAR,HAZY) Urine pH 7.0 (5.0-8.0) Urine Specific [place] 1.015 (1.003-1.035) Urine Protein >300mg/dL (NEG,TRACE) Urine Glucose (UA) >1000mg/dL (NEGATIVE) Urine Ketones Negativemg/dL (NEGATIVE) Urine Occult Blood Moderate (NEGATIVE) Urine Nitrite Negative (NEGATIVE) Urine Bilirubin Negative (NEGATIVE) Urine Urobilinogen Normalmg/dL (NORMAL) Urine Leukocyte Esterase Negative (NEGATIVE) Urine RBC 11-50/hpf (0-2) Urine WBC 6-10/hpf (0-5) Urine Epithelial Cells Few/hpf (NONE-MOD) Urine Crystals None seen (NONE SEEN) Urine Bacteria Moderate/hpf (NONE-FEW) Urine Hyaline Casts None/lpf (NONE) Urine Granular Casts None seen (NONE SEEN) Urine Waxy Casts None seen (NONE SEEN) Urine Red Blood Cell Casts None seen (NONE SEEN) Urine White Blood Cell Casts None seen (NONE SEEN) Urine Mucus Present (None Seen) Urine Trichomonas None seen (NONE SEEN) Urine Yeast None (NONE SEEN) Urinalysis Comment None Urine Culture Reflexed Indicated Test 07/21/17 11:20 07/22/17 05:36 07/22/17 09:25 Sodium Level 139mEq/L (134-144) 138mEq/L (134-144) Potassium Level 4.6mEq/L (3.5-5.2) 4.7mEq/L (3.5-5.2) Chloride Level 106mEq/L (97-108) 104mEq/L (97-108) Carbon Dioxide Level 22mmol/L (18-29) 23mmol/L (18-29) Blood Urea Nitrogen 35mg/dL (6-24) 27mg/dL (6-24) Creatinine 1.07mg/dL (0.57-1.00) 0.97mg/dL (0.57-1.00) Estimat Glomerular Filtration Rate 81mL/min (>59) 90mL/min (>59) Glucose Level 198mg/dL (60-99) 93mg/dL (60-99) Calcium Level 8.2mg/dL (8.5-10.1) 7.9mg/dL (8.5-10.1) Total Bilirubin 0.2mg/dL (0.0-1.2) 0.2mg/dL (0.0-1.2) Aspartate Amino Transf (AST/SGOT) 11U/L (0-50) 13U/L (0-50) Alanine Aminotransferase (ALT/SGPT) 11U/L (0-32) 11U/L (0-32) Alkaline Phosphatase 68U/L (25-150) 64U/L (25-150) Total Protein 5.3g/dL (6.4-8.4) 5.0g/dL (6.4-8.4) Albumin 2.9g/dL (3.4-5.0) 2.7g/dL (3.4-5.0) Triglycerides Level 137mg/dL (0-149) Cholesterol Level 245mg/dL (100-199) LDL Cholesterol, Calculated 178.600mg/dL (0-99) VLDL Cholesterol 27.400mg/dL HDL Cholesterol 39mg/dL (>39) Cholesterol/HDL Ratio 6.28 (0.0-4.4) Lipase 133U/L (13-60) 80U/L (13-60) White Blood Count 7.9th/mm3 (3.8-10.1) Red Blood Count 3.58mil/mm3 (3.90-5.20) Hemoglobin 9.8g/dL (12.0-15.6) Hematocrit 30.2% (35.0-46.0) Mean Corpuscular Volume 84.4fL (81-100) Mean Corpuscular Hemoglobin 27.4pg (27.0-35.0) Mean Corpuscular Hemoglobin Concent 32.5% (32.0-37.0) Red Cell Distribution Width 13.8% (12.3-15.4) Platelet Count 204bil/L (150-400) Neutrophils (%) (Auto) 62.1% (40-74) Lymphocytes (%) (Auto) 30.3% (14-46) Monocytes (%) (Auto) 5.6% (4-12) Eosinophils (%) (Auto) 1.8% (0-5) Basophils (%) (Auto) 0.1% (0-3) Result Diagram: 07/22/1736 07/22/17535 X-Rays, CTs and MRIs PROCEDURE: CT ABDOMEN AND PELVIS WITH CONTRAST ([id number]) INDICATIONS: upper abdominal pain TECHNIQUE: After the administration of oral and intravenous contrast, 5 mm thick sections acquired from the diaphragms to the symphysis. 5 mm thick coronal and sagittal reformats were performed. For radiation dose reduction, the following was used : automated exposure control, adjustment of mA and/or kV according to patient size. COMPARISON: [facility], CT, ABD/PELVIS W/CON (PNL), 03/11/2015, 16: 10. FINDINGS: Image quality: Excellent. ABDOMEN: Lung bases: Lung bases are clear. Heart size is normal. Solid organs: Liver and spleen are normal in size and enhancement. Gallbladder surgically absent. Biliary system is non-dilated. Pancreas enhances normally. No adrenal nodules. Kidneys are normal in size and enhancement, without hydronephrosis. Peritoneum and bowel: Stomach, small bowel, and colon loops are normal in caliber and wall thickness. No free fluid or air. The appendix appears normal Nodes and vessels: There are shotty retroperitoneal lymph nodes without definite pathologic enlargement. Aorta and inferior vena cava are normal in caliber. Miscellaneous: Containing umbilical hernia measuring 2 cm PELVIS: Genitourinary: Bladder wall thickness is normal. Incidentally noted IUD. Presumed right adnexal cyst/dominant follicle. Miscellaneous: No inguinal hernias or adenopathy. Bones: No suspicious bony lesions. No vertebral body compression fractures. IMPRESSION: No visualized, specific etiology for clinically reported upper abdominal pain. Status post cholecystectomy. 2 cm fat containing umbilical hernia. Assessment & Plan Patient is a 42-year-old female that presents with upper abdominal pain and a history of pancreatitis, diabetes, MRSA, neuropathy 1. Acute pancreatitis, presents upon admission and ongoing -Lipase at 349, epigastric pain radiating to the back, and history of pancreatitis suggests likely origin of pain -Cholecystectomy therefore, not gallbladder. -Abdominal ultrasound indicative of fatty liver, likely cause of pancreatitis -CT scan from yesterday shows no acute abnormalities -Lipase is improving -Progress diet as tolerated 2. Acute kidney injury, present on admission and ongoing, resolved -Elevated BUN of 44, elevated creatinine at 1.92 -Fluids as above -Avoid nephrotoxic medications 3. Diabetes, insulin-dependent, present on admission and ongoing -Patient on Lantus, NovoLog, and metformin at home. We will hold metformin and continue the rest of medications 4. Hypertension, present on admission and ongoing - Continue home Labatolol for BP management 5. GERD, present on admission ongoing -Protonix Patient has been admitted into inpatient, she is expected to spend greater than two midnights in the hospital GI Prophylaxis: H2 ekaterina VTE Prophylaxis: Sub-Q Heparin (Unfractionated) Resuscitation Status: CPR: Attempt Resuscitation Time spent 20 minute Renae Platt MD Jul 22, 2017 16:17
[2017-07-22 19:15] VITALS: BP 185/83; PULSE 74; RESP 16
[2017-07-23] MEDS: 0.9% Sodium Chloride 1,000 ML IV SCH (02:29)
--- NOTE | 2017-07-23 04:02 | NUR ---
PAIN; no request for pain rx. Slept most of shift.
[2017-07-23 04:30] VITALS: BP 153/70; PULSE 80; RESP 17; O2SAT 94
--- NOTE | 2017-07-23 07:19 | PCM.DIMED ---
Discharge Instructions Date of Service Jul 23, 2017 Dates of Hospitalization Jul 21, 2017 at 01:05 Discharge Diagnosis Discharge Diagnosis Acute pancreatitis, resolved Diet Discharge Diet: Heart Healthy Activity Discharge Activity: Other (progress as tolerated) Call your provider Call your provider for: Fever or Chills, Shortness of breath, Bleeding, Chest pain, Vomitting, Excessive diarrhea, Weakness (unilateral) Patient Instructions Follow-up Provider: Yaw Norton DO Follow-up with PCP in: Other (in 3-5 days, sooner if problems) Renae Platt MD Jul 23, 2017 07:19
[2017-07-23] MEDS ORDERED: HYDR-3090 PO (07:22)
[2017-07-23] MEDS ORDERED: ONDA4TAB12 PO (07:22)
--- NOTE | 2017-07-23 07:29 | PCM.DC.MED ---
Discharge Summary Date of Service Jul 23, 2017 Dates of Hospitalization Date of Hospital Admission Jul 21, 2017 at 01:05 Date of Discharge: Jul 23, 2017 Providers: Admitting Physician: Reinier Barboza MD Primary Care Physician: Gudelia Bryant DO Attending Physician: Renae Platt MD Diagnosis at Time of Discharge Diagnosis at Time of Discharge Acute pancreatitis, resolved Procedures XRay, CTs & MRIs PROCEDURE: CT ABDOMEN AND PELVIS WITH CONTRAST ([facility]-[id number]) INDICATIONS: upper abdominal pain TECHNIQUE: After the administration of oral and intravenous contrast, 5 mm thick sections acquired from the diaphragms to the symphysis. 5 mm thick coronal and sagittal reformats were performed. For radiation dose reduction, the following was used : automated exposure control, adjustment of mA and/or kV according to patient size. COMPARISON: [facility] [place], CT, ABD/PELVIS W/CON ([facility]), 03/11/2015, 16: 10. FINDINGS: Image quality: Excellent. ABDOMEN: Lung bases: Lung bases are clear. Heart size is normal. Solid organs: Liver and spleen are normal in size and enhancement. Gallbladder surgically absent. Biliary system is non-dilated. Pancreas enhances normally. No adrenal nodules. Kidneys are normal in size and enhancement, without hydronephrosis. Peritoneum and bowel: Stomach, small bowel, and colon loops are normal in caliber and wall thickness. No free fluid or air. The appendix appears normal Nodes and vessels: There are shotty retroperitoneal lymph nodes without definite pathologic enlargement. Aorta and inferior vena cava are normal in caliber. Miscellaneous: Containing umbilical hernia measuring 2 cm PELVIS: Genitourinary: Bladder wall thickness is normal. Incidentally noted IUD. Presumed right adnexal cyst/dominant follicle. Miscellaneous: No inguinal hernias or adenopathy. Bones: No suspicious bony lesions. No vertebral body compression fractures. IMPRESSION: No visualized, specific etiology for clinically reported upper abdominal pain. Status post cholecystectomy. 2 cm fat containing umbilical hernia. Brief History Patient is a 42-year-old female that presents to the emergency department with upper abdominal pain that radiates to the back. She has a history of pancreatitis 2, diabetes, hyperlipidemia, MRSA infection, and recurrent abscesses Patient states that her abdominal pain started 2 weeks ago and worsened this last July 17. She states that the pain is better in the morning and worse after eating. The pain is located in the epigastric region and radiates directly to the back. She says that this is similar to the pain she experienced previously with pancreatitis. The patient reports typically being compliant with her medications but states that she was unable to take them this morning secondary to nausea. Patient denies vomiting, diaphoresis, constipation , dysuria, hematochezia, chest pain. Patient admits to polyuria secondary to diuretic, chronic diarrhea with current stools being consistency of jelly. Hospital Course Patient is a 42-year-old female that presents with upper abdominal pain and a history of pancreatitis, diabetes, MRSA, neuropathy 1. Acute pancreatitis, presents upon admission and ongoing -Lipase at 349, epigastric pain radiating to the back, and history of pancreatitis suggests likely origin of pain -Cholecystectomy therefore, not gallbladder. -Abdominal ultrasound indicative of fatty liver, likely cause of pancreatitis -CT scan from yesterday shows no acute abnormalities -Lipase is improving -Progress diet as tolerated -Patient has had no pain since yesterday and no nausea or vomiting and will be discharged to home -No etiology for her mild pancreatitis has been discerned. She has had previous history of similar. It is possible that her HELENE inhibitor is contributing to these episodes. Please keep this in mind although I have restarted currently. 2. Acute kidney injury, present on admission and ongoing, resolved -Elevated BUN of 44, elevated creatinine at 1.92 -Fluids as above -Avoid nephrotoxic medications 3. Diabetes, insulin-dependent, present on admission and ongoing -Patient on Lantus, NovoLog, and metformin at home. We will hold metformin and continue the rest of medications -Resume metformin upon discharge 4. Hypertension, present on admission and ongoing - Continue home Labatolol for BP management 5. GERD, present on admission ongoing -Protonix Exam Vital Signs (Last) Date Time Temp Pulse Resp B/P Pulse Ox O2 Delivery O2 Flow Rate FiO2 07/23/17 04:30 36.5 80 17 153/70 94 07/22/17 19:15 Room Air Exam Constitutional: Middle-aged female in no acute distress Head: Normocephalic atraumatic Chest: Clear to auscultation Cor: Regular rate and rhythm S1-S2 without murmur Abdomen: Soft nontender bowel sounds present Extremities: No pedal edema Skin: No rashes Psych: Mood and affect are appropriate Neuro: Alert and oriented 3, motor strength is intact bilaterally Laboratory Tests 72 Hours Test 07/20/17 21:53 07/20/17 21:59 07/20/17 23:07 07/21/17 09:40 Hold Urine Received (Received) White Blood Count 11.7th/mm3 (3.8-10.1) Red Blood Count 4.23mil/mm3 (3.90-5.20) Hemoglobin 11.8g/dL (12.0-15.6) Hematocrit 35.3% (35.0-46.0) Mean Corpuscular Volume 83.5fL (81-100) Mean Corpuscular Hemoglobin 27.9pg (27.0-35.0) Mean Corpuscular Hemoglobin Concent 33.4% (32.0-37.0) Red Cell Distribution Width 13.7% (12.3-15.4) Platelet Count 254bil/L (150-400) Neutrophils (%) (Auto) 72.7% (40-74) Lymphocytes (%) (Auto) 20.3% (14-46) Monocytes (%) (Auto) 4.8% (4-12) Eosinophils (%) (Auto) 1.8% (0-5) Basophils (%) (Auto) 0.1% (0-3) Sodium Level 133mEq/L (134-144) 139mEq/L (134-144) Potassium Level 4.4mEq/L (3.5-5.2) 5.0mEq/L (3.5-5.2) Chloride Level 94mEq/L (97-108) 106mEq/L (97-108) Carbon Dioxide Level 25mmol/L (18-29) 23mmol/L (18-29) Blood Urea Nitrogen 44mg/dL (6-24) 36mg/dL (6-24) Creatinine 1.92mg/dL (0.57-1.00) 1.15mg/dL (0.57-1.00) Estimat Glomerular Filtration Rate 41mL/min (>59) 74mL/min (>59) Glucose Level 339mg/dL (60-99) 234mg/dL (60-99) Calcium Level 9.2mg/dL (8.5-10.1) 8.3mg/dL (8.5-10.1) Magnesium Level 2.1mg/dL (1.6-2.6) Total Bilirubin 0.2mg/dL (0.0-1.2) Aspartate Amino Transf (AST/SGOT) 13U/L (0-50) Alanine Aminotransferase (ALT/SGPT) 13U/L (0-32) Alkaline Phosphatase 87U/L (25-150) Troponin T 0.010ug/L (0.0-0.011) Total Protein 7.1g/dL (6.4-8.4) Albumin 3.2g/dL (3.4-5.0) Lipase 349U/L (13-60) Hold Ramos Top Tube Received (Received) Urine Color Yellow (YELLOW) Urine Appearance Clear (CLEAR,HAZY) Urine pH 7.0 (5.0-8.0) Urine Specific [place] 1.015 (1.003-1.035) Urine Protein >300mg/dL (NEG,TRACE) Urine Glucose (UA) >1000mg/dL (NEGATIVE) Urine Ketones Negativemg/dL (NEGATIVE) Urine Occult Blood Moderate (NEGATIVE) Urine Nitrite Negative (NEGATIVE) Urine Bilirubin Negative (NEGATIVE) Urine Urobilinogen Normalmg/dL (NORMAL) Urine Leukocyte Esterase Negative (NEGATIVE) Urine RBC 11-50/hpf (0-2) Urine WBC 6-10/hpf (0-5) Urine Epithelial Cells Few/hpf (NONE-MOD) Urine Crystals None seen (NONE SEEN) Urine Bacteria Moderate/hpf (NONE-FEW) Urine Hyaline Casts None/lpf (NONE) Urine Granular Casts None seen (NONE SEEN) Urine Waxy Casts None seen (NONE SEEN) Urine Red Blood Cell Casts None seen (NONE SEEN) Urine White Blood Cell Casts None seen (NONE SEEN) Urine Mucus Present (None Seen) Urine Trichomonas None seen (NONE SEEN) Urine Yeast None (NONE SEEN) Urinalysis Comment None Urine Culture Reflexed Indicated Test 07/21/17 11:20 07/22/17 05:36 07/22/17 09:25 Sodium Level 139mEq/L (134-144) 138mEq/L (134-144) Potassium Level 4.6mEq/L (3.5-5.2) 4.7mEq/L (3.5-5.2) Chloride Level 106mEq/L (97-108) 104mEq/L (97-108) Carbon Dioxide Level 22mmol/L (18-29) 23mmol/L (18-29) Blood Urea Nitrogen 35mg/dL (6-24) 27mg/dL (6-24) Creatinine 1.07mg/dL (0.57-1.00) 0.97mg/dL (0.57-1.00) Estimat Glomerular Filtration Rate 81mL/min (>59) 90mL/min (>59) Glucose Level 198mg/dL (60-99) 93mg/dL (60-99) Calcium Level 8.2mg/dL (8.5-10.1) 7.9mg/dL (8.5-10.1) Total Bilirubin 0.2mg/dL (0.0-1.2) 0.2mg/dL (0.0-1.2) Aspartate Amino Transf (AST/SGOT) 11U/L (0-50) 13U/L (0-50) Alanine Aminotransferase (ALT/SGPT) 11U/L (0-32) 11U/L (0-32) Alkaline Phosphatase 68U/L (25-150) 64U/L (25-150) Total Protein 5.3g/dL (6.4-8.4) 5.0g/dL (6.4-8.4) Albumin 2.9g/dL (3.4-5.0) 2.7g/dL (3.4-5.0) Triglycerides Level 137mg/dL (0-149) Cholesterol Level 245mg/dL (100-199) LDL Cholesterol, Calculated 178.600mg/dL (0-99) VLDL Cholesterol 27.400mg/dL HDL Cholesterol 39mg/dL (>39) Cholesterol/HDL Ratio 6.28 (0.0-4.4) Lipase 133U/L (13-60) 80U/L (13-60) White Blood Count 7.9th/mm3 (3.8-10.1) Red Blood Count 3.58mil/mm3 (3.90-5.20) Hemoglobin 9.8g/dL (12.0-15.6) Hematocrit 30.2% (35.0-46.0) Mean Corpuscular Volume 84.4fL (81-100) Mean Corpuscular Hemoglobin 27.4pg (27.0-35.0) Mean Corpuscular Hemoglobin Concent 32.5% (32.0-37.0) Red Cell Distribution Width 13.8% (12.3-15.4) Platelet Count 204bil/L (150-400) Neutrophils (%) (Auto) 62.1% (40-74) Lymphocytes (%) (Auto) 30.3% (14-46) Monocytes (%) (Auto) 5.6% (4-12) Eosinophils (%) (Auto) 1.8% (0-5) Basophils (%) (Auto) 0.1% (0-3) Hemoglobin A1c 5.3% (4.8-5.6) Test 07/20/17 21:53 07/20/17 21:59 07/20/17 23:07 07/21/17 11:20 Hold Urine Received (Received) Magnesium Level 2.1mg/dL (1.6-2.6) Troponin T 0.010ug/L (0.0-0.011) Hold Ramos Top Tube Received (Received) Urine Color Yellow (YELLOW) Urine Appearance Clear (CLEAR,HAZY) Urine pH 7.0 (5.0-8.0) Urine Specific [place] 1.015 (1.003-1.035) Urine Protein >300mg/dL (NEG,TRACE) Urine Glucose (UA) >1000mg/dL (NEGATIVE) Urine Ketones Negativemg/dL (NEGATIVE) Urine Occult Blood Moderate (NEGATIVE) Urine Nitrite Negative (NEGATIVE) Urine Bilirubin Negative (NEGATIVE) Urine Urobilinogen Normalmg/dL (NORMAL) Urine Leukocyte Esterase Negative (NEGATIVE) Urine RBC 11-50/hpf (0-2) Urine WBC 6-10/hpf (0-5) Urine Epithelial Cells Few/hpf (NONE-MOD) Urine Crystals None seen (NONE SEEN) Urine Bacteria Moderate/hpf (NONE-FEW) Urine Hyaline Casts None/lpf (NONE) Urine Granular Casts None seen (NONE SEEN) Urine Waxy Casts None seen (NONE SEEN) Urine Red Blood Cell Casts None seen (NONE SEEN) Urine White Blood Cell Casts None seen (NONE SEEN) Urine Mucus Present (None Seen) Urine Trichomonas None seen (NONE SEEN) Urine Yeast None (NONE SEEN) Urinalysis Comment None Urine Culture Reflexed Indicated Triglycerides Level 137mg/dL (0-149) Cholesterol Level 245mg/dL (100-199) LDL Cholesterol, Calculated 178.600mg/dL (0-99) VLDL Cholesterol 27.400mg/dL HDL Cholesterol 39mg/dL (>39) Cholesterol/HDL Ratio 6.28 (0.0-4.4) Test 07/22/17 05:36 07/22/17 09:25 White Blood Count 7.9th/mm3 (3.8-10.1) Red Blood Count 3.58mil/mm3 (3.90-5.20) Hemoglobin 9.8g/dL (12.0-15.6) Hematocrit 30.2% (35.0-46.0) Mean Corpuscular Volume 84.4fL (81-100) Mean Corpuscular Hemoglobin 27.4pg (27.0-35.0) Mean Corpuscular Hemoglobin Concent 32.5% (32.0-37.0) Red Cell Distribution Width 13.8% (12.3-15.4) Platelet Count 204bil/L (150-400) Neutrophils (%) (Auto) 62.1% (40-74) Lymphocytes (%) (Auto) 30.3% (14-46) Monocytes (%) (Auto) 5.6% (4-12) Eosinophils (%) (Auto) 1.8% (0-5) Basophils (%) (Auto) 0.1% (0-3) Sodium Level 138mEq/L (134-144) Potassium Level 4.7mEq/L (3.5-5.2) Chloride Level 104mEq/L (97-108) Carbon Dioxide Level 23mmol/L (18-29) Blood Urea Nitrogen 27mg/dL (6-24) Creatinine 0.97mg/dL (0.57-1.00) Estimat Glomerular Filtration Rate 90mL/min (>59) Glucose Level 93mg/dL (60-99) Calcium Level 7.9mg/dL (8.5-10.1) Total Bilirubin 0.2mg/dL (0.0-1.2) Aspartate Amino Transf (AST/SGOT) 13U/L (0-50) Alanine Aminotransferase (ALT/SGPT) 11U/L (0-32) Alkaline Phosphatase 64U/L (25-150) Total Protein 5.0g/dL (6.4-8.4) Albumin 2.7g/dL (3.4-5.0) Lipase 80U/L (13-60) Hemoglobin A1c 5.3% (4.8-5.6) Discharge Medications Discharge Medications Cetirizine (Cetirizine) 5 Mg Tablet 10 MG PO HS (Reported) Chlorthalidone (Chlorthalidone) 25 Mg Tablet 25 MG PO DAILY (Reported) Duloxetine (Cymbalta) 30 Mg Capsule.dr 30 MG PO DAILY (Reported) Fluconazole (Fluconazole) 150 Mg Tablet 150 MG PO WEEKLY (Reported) Insulin Glargine (Lantus U100 Solostar Insulin Pen) 100 Unit/1 Ml Insuln.pen 80 UNIT SUBQ MORNING (Reported) Labetalol (Labetalol) 100 Mg Tablet 100 MG PO BID (Reported) Lisinopril (Lisinopril) 30 Mg Tablet 30 MG PO DAILY (Reported) Metformin (Glucophage) 1,000 Mg Tablet 1,000 MG PO BID (Reported) As needed Albuterol HFA (Proair HFA) 8.5 Gm Hfa.aer.ad 2 PUFFS INHALATION Q4H PRN PRN For Shortness of Breath (Reported) Albuterol Sulfate (Ventolin HFA Inhaler) 200 Puff/18 Gm Inhaler 1 PUFF INH Q4 PRN PRN For Wheezing (Reported) Hydrocodone-Acetaminophen 5-300 mg (Hydrocodone-Acetaminophen 5-300 mg) 1 Each Tablet 1 TABLET PO Q4H PRN PRN For Pain Prescribed by: RENAE PLATT MD Insulin Aspart (NovoLOG U100 Insulin Vial) 100 U/Ml U Unknown Dose SUBQ DIRECTED PRN PRN sliding scale/blood glucose (Reported) Loperamide HCl (Imodium A-D) 2 Mg Capsule 2 MG PO PRN For Diarrhea or Loose Stool (Reported) Ondansetron ODT (Ondansetron ODT) 4 Mg Tab.rapdis 4 MG PO Q4H PRN PRN For Nausea Prescribed by: RENAE PLATT MD Torsemide (Torsemide) 20 Mg Tablet 20 MG PO BID PRN PRN edema (Reported) Trazodone (Trazodone) 150 Mg Tablet 150 MG PO HS PRN PRN For Insomnia (Reported ) Triamcinolone Acetonide (Nasacort) 10.8 Ml [place] 10.8 ML NS PRN For Congestion ( Reported) Followup Plan Disposition: Home Discharge Diet: Heart Healthy Discharge Activity: Other (progress as tolerated) Follow-up Provider: Yaw Norton DO Follow-up with PCP in: Other (in 3-5 days, sooner if problems) Time spent 45 minutes copies to: Yaw Norton DO Renae Platt MD Jul 23, 2017 07:29
--- NOTE | 2017-07-23 08:15 | NUR ---
Social Work: Discharge/Multidisciplinary Rounds D: EMR reviewed. Pt is on day 2 of hospitalization. Pt discussed in multidisciplinary rounds on 07/22, no discharge needs identified, no MD orders received. Pt to discharge home today with to transport via POV. A: Pt who is independent at baseline and has the capacity for self-care. P: Pt anticipated to discharge home with to transport via POV. No SW needs identified, no MD orders received at this time. LEIA Foreman
[2017-07-23] MEDS: Insulin GLARgine 100 Unit/mL Syringe SUBQ SCH (09:04)
[2017-07-23] MEDS: Insulin LISPRO 300 Unit/3 mL Inj SUBQ SCH (09:04)
[2017-07-23] MEDS: DULoxetine 30 mg DR Capsule PO SCH (09:05)
[2017-07-23] MEDS: Heparin 5,000 Unit/mL Inj SUBQ SCH (09:05)
[2017-07-23] MEDS: Pantoprazole 40 mg ER24 Tablet PO SCH (09:05)
[2017-07-23 09:11] VITALS: BP 177/92; PULSE 79; RESP 18; O2SAT 94
== END 2017-07-23 09:00 | disposition home or self-care (01) | DRG 439 ==
LOC: SED 21:30 → OSC 07-21 01:05
PROVIDERS: ADMIT Hospitalist; ATTEND Specialist
DX: K85.90 Acute pancreatitis without necrosis or infection, unspecified (principal); N17.9 Acute kidney failure, unspecified; E78.5 Hyperlipidemia, unspecified; K21.9 Gastro-esophageal reflux disease without esophagitis; F17.200 Nicotine dependence, unspecified, uncomplicated; E11.65 Type 2 diabetes mellitus with hyperglycemia; I10 Essential (primary) hypertension; Z79.4 Long term (current) use of insulin; Z79.51 Long term (current) use of inhaled steroids; Z90.49 Acquired absence of other specified parts of digestive tract